=== PATIENT | female | born 1930 | race Caucasian/White ===

== ENCOUNTER 2017-02-03 11:12 | Inpatient (IN) | payer MEDICARE, OTHER ==
[2017-02-03 12:40] LABS: BASOPHILS 0.2 % (0.0-2.0); HEMATOCRIT 41.2 % (36.0-48.0); HEMOGLOBIN 14.1 g/dL (12.0-16.0); LYMPHOCYTES 10.4 % (20.0-40.0); LYMPHOCYTES# 1.2 X 10^3uL (0.8-3.8); MEAN CELL VOLUME 90.9 fL (80.0-100.0); MEAN CORPUS. HGB CONCENTRATION 34.3 g/dL (32.0-36.0); MEAN CORPUSCULAR HEMOGLOBIN 31.1 pg (29.0-35.0); MEAN PLATELET VOLUME 8.2 fL (7.4-10.4); MONOCYTES 6.2 % (2.0-10.0); MONOCYTES# 0.7 X 10^3uL (0.2-1.0); NEUTROPHILS 83.2 % (54.0-75.0); NEUTROPHILS# 9.6 X 10^3uL (2.6-6.7); PLATELET COUNT 253 X 10^3uL (130-440); RED BLOOD COUNT 4.53 X 10^6uL (4.20-6.10); RED CELL DISTRIBUTION WIDTH 13.3 % (11.5-14.5); WHITE BLOOD COUNT 11.5 X 10^3uL (3.9-10.7)
[2017-02-03 12:51] LABS: BLOOD UREA NITROGEN 33 mg/dL (7-17); CALCIUM 9.8 mg/dL (8.4-10.2); CHLORIDE 105 mmol/L (98-107); CREATININE 1.1 mg/dL (0.5-1.0); GLUCOSE 110 mg/dL (70-100); POTASSIUM 4.4 mmol/L (3.5-5.1); SODIUM 139 mmol/L (137-145)
[2017-02-03 12:54] LABS: INR 1.1
[2017-02-03] MEDS ORDERED: ACETAMINOPHEN 325 MG TABLET PO PRN ×2 (14:13→15:20)
[2017-02-03] MEDS ORDERED: ZOLPIDEM TARTRATE 5 MG TABLET PO PRN (14:13)
[2017-02-03] MEDS ORDERED: MAG-AL PLUS XS SUSP 30 ML UDC PO PRN (14:13)
[2017-02-03] MEDS ORDERED: POLYETHYLENE GLYCOL 3350 17 GM POWD.PACK PO PRN (14:13)
[2017-02-03] MEDS ORDERED: HOME MEDICATION LIST NEEDED 1 EA EACH MC ONE (14:13)
[2017-02-03 14:33] LABS: ALBUMIN 4.6 g/dL (3.5-5.0); ALKALINE PHOSPHATASE 116 U/L (38-126); ALT 25 U/L (9-52); AST 30 U/L (14-36); BILIRUBIN, DIRECT 0.4 mg/dL (0.0-0.4); BILIRUBIN, TOTAL 1.6 mg/dL (0.2-1.3); CREATINE KINASE 200 U/L (30-135); TOTAL PROTEIN 8.1 g/dL (6.3-8.2)
[2017-02-03] MEDS ORDERED: FENTANYL 100 MCG/2 ML VIAL ONE (15:19)
[2017-02-03] MEDS ORDERED: HYDROcodone/APAP 5/325 MG 1 TAB TABLET PO PRN (16:00)
--- NOTE | 2017-02-03 16:31 | HISTORY & PHYSICAL ---
PRIMARY CARE PHYSICIAN: Kaay Lopez MD CHIEF COMPLAINT: Fall. HISTORY OF PRESENT ILLNESS: This is an 87-year-old white female who slipped and fell approximately 1800 yesterday and fell with her outstretched hand backwards. She had immediate pain of her bilateral wrists. She was unable to get up. She had to crawl through the door and use the door to stand up. No head injury. She also landed on her low back but no low back pain. No preceding chest pain, lightheadedness, dizziness, shortness of breath or any signs or symptoms of a stroke. She soaked her arm in hot water with no relief of pain. She states her pain is so severe that she developed lightheadedness and dizziness but no syncope. She also had nausea but no vomiting. She states that her last meal was 1 p.m. yesterday. REVIEW OF SYSTEMS: She is currently not having any chest pain, no shortness of breath, no palpitations, no diaphoresis, no nausea or vomiting, no headache, neurologic changes, no dysphagia. No other recent falls. She often awakens with dizziness which she believes is related to her high blood pressure. She no longer checks her blood pressure and she has not taken her blood pressure medications for many years. No abdominal pain, no constipation, no diarrhea. No bloody stools. No dysuria. She does complain of frequent bilateral lower extremity cramping of her feet and legs when lying supine. PAST MEDICAL HISTORY 1. Hypertension. Of note, she has not been seen in the office for her hypertension since 2008 and has not had medications filled since that time. 2. History of migraine headaches. 3. History of urinary incontinence. MEDICATIONS: Baby aspirin daily. ALLERGIES: No known drug allergies. SOCIAL HISTORY: She is . with multiple medical problems. She has never been a smoker. No alcohol use. No children. She lives alone. 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 She is originally from [facility]. FAMILY HISTORY: Mom at the age of 87 of old age. She was healthy. Her dad in his 30s in [place]. Her grandmother had ischemic heart disease. PHYSICAL EXAMINATION VITAL SIGNS: Upon admission temperature 98.0, respiratory rate 18, pulse 88, blood pressure 135/104, 85% on room air. Her weight is 53.07 kg. She is 5 feet 1 inch. Repeat blood pressure was 209/88 and current blood pressure is 214 /88. GENERAL: This is a very pleasant, elderly female who is in no apparent distress. She only has pain with movement of her bilateral upper extremity. She is awake, alert, oriented times 3. HEENT: Her sclerae are clear. Her pupils are equal, round and reactive to light. Extraocular movements are intact. Her nares are clear. Her oropharynx is clear. NECK: Supple. Full range of motion. No carotid bruits, no lymphadenopathy. No jugular venous distention. LUNGS: Good aeration throughout and clear. HEART: Regular rate and rhythm without any murmurs, rubs or gallops. ABDOMEN: Soft, nontender, nondistended with good bowel sounds and no masses or hepatosplenomegaly. EXTREMITIES: Bilateral upper extremities reveal significant swelling of her hands and distal forearm. She has a 2 cm laceration of her right distal forearm. She has a skin tear of her left elbow. There is no active bleeding. The wounds are clean, dry and intact. She is able to move her fingers. She has good radial and brachial pulses. She is not able to extend or flex her wrist. She has full range of motion of her elbows and her shoulders. Bilateral lower extremities are warm. No cyanosis, clubbing or edema. Negative Homans. No palpable cords. SKIN: Cap refill is less than 3 seconds. NEUROLOGIC: Alert and oriented times 3. Good peripheral pulses. Her cranial nerves 2 through 12 are grossly intact without focal deficits. Her lower extremity motor sensation and DTRs are intact. Bilateral upper extremities: Her forearm strength is 5+. Unable to assess hand certified nursing assistant secondary to fractures and pain. Her upper extremity reflexes are 2+/4+. Bilateral lower extremities motor is 5+/5+. DTRs of lower extremities are 2+/4+. DTRs of lower extremities are 3+/4+. Upper extremity arm strength is 5+, forearms strength is 5+. Unable to assess the hand certified nursing assistant secondary to fractures. DATA: Basic meatbiolic panel bicarbonate is 21, BUN is 33, creatinine 1.1, glucose 110. CBC shows white count 11.5, hemoglobin 13.1, hematocrit 31.2. Platelets 253. PT 15.2, INR 1.1. Hepatic panel reveals alkaline phosphatase 125, otherwise normal. X-RAYS: Bilateral Colles fractures. EKG: Normal sinus rhythm with a rate of 75, axis normal, no QRS changes. She had a prior stress echocardiogram which was negative in 2010. ASSESSMENT: This is an 87-year-old female who presents with bilateral Colles fractures. PLAN 1. Fluids, electrolytes and nutrition. She states that she in general eats very little. Will begin some gentle IV fluids as she appears to be mildly dehydrated. Check creatinine kinase to ensure she does not have any rhabdomyolysis. 2. Orthopedics. Orthopedic surgeon Dr. Emmett Gruber has been notified. He will evaluate the patient tomorrow. For now we will most likely use volar splints as well as icing and pain medications as needed. Dr. Gruber has reviewed the films and does not believe that the patient will need operative reduction, internal fixation and that she can be managed conservatively with closed reduction of the fractures and casting. 3. Cardiovascular. The patient with longstanding history of hypertension with elevated blood pressures here. Will most likely begin DIVYA inhibitor and followup closely. 4. Disposition. Full hospital admission. She is a full core, full tube. She is unable to take care of herself at home. When she is more able to ambulate, we will ask physical therapy to evaluate. Social work and case management to evaluate for home safety after at least a 2-3 day hospital stay. CC: Dr. Emmett Gruber. ANGELA
[2017-02-03] MEDS ORDERED: ONDANSETRON HCL 4 MG/2 ML VIAL IV PRN (16:32)
[2017-02-03] MEDS: LISINOPRIL 10 MG TABLET PO SCH (16:34)
[2017-02-03] MEDS: NORMAL SALINE 1,000 ML IV SCH (16:35)
--- NOTE | 2017-02-03 16:38 | ER PHYSICIAN DOCUMENTATION ---
Physician Documentation [facility] Name:Esme Vogel Age:87 yrs Sex:Female :1930 Arrival Date:02/03/2017 Time:11:12 Bed6 Private MD:Kaya Lopez ED PhysicianRodolfokatyDuc Disposition: 02/04 11:41 Chart complete. tl1 Disposition: 02/03/17 16:37 Admit ordered for Kaya Lopez. Preliminary diagnosis is Colles Fracture. - Bed requested for Medical/Surgical. - Condition is Good. - Problem is new. - Symptoms have improved. 23 HR OBS No HPI: 02/03 11:26 This 87 yrs old Female presents to ER via Walk In with complaints of Fall tl1 Injury. 11:26 She fell yesterday; slipped on the ice , falling backwards, and injuring both wrists. tl1 She has little function with either. She denies any other injruy. No neck, back chest abdomen or any other pain. She lives alone.. Historical: - Allergies: No known drug Allergies; - Home Meds: 1. aspirin 81 mg oral tab - PMHx: Hypertension; - PSHx: None; - Tetanus: unknown. - Ebola Screening: : Patient negative for fever greater than or equal to 101.5 degrees Fahrenheit, and additional compatible Ebola Virus Disease symptoms. - Immunization history: Flu Vaccine None. - Social history: Smoking status: Patient states was never smoker of tobacco. ROS: 11:30 MS/extremity: Positive for decreased range of motion, deformity, ecchymosis, pain, tl1 swelling, tenderness, of the Both wrists. 11:30 All other systems are negative. Exam: 11:30 Constitutional: This is a well developed, well nourished patient who is awake, alert, tl1 and in no acute distress. Head/Face: Normocephalic, atraumatic. Neck: Trachea midline, no thyromegaly or masses palpated, and no cervical lymphadenopathy. Supple, full range of motion without nuchal rigidity, or vertebral point tenderness. No Meningismus. Chest/axilla: Normal chest wall appearance and motion. Nontender with no deformity. No lesions are appreciated. Cardiovascular: Regular rate and rhythm with a normal S1 and S2. No gallops, murmurs, or rubs. Normal PMI, no JVD. No pulse deficits. Respiratory: Lungs have equal breath sounds bilaterally, clear to auscultation and percussion. No rales, rhonchi or wheezes noted. No increased work of breathing, no retractions or nasal flaring. Abdomen/GI: Soft, non-tender, with normal bowel sounds. No distension or tympany. No guarding or rebound. No evidence of tenderness throughout. Back: No spinal tenderness. No costovertebral tenderness. Full range of motion. 11:30 Skin: Warm, dry with normal turgor. Normal color with no rashes, no lesions, and no tl1 evidence of cellulitis. 11:30 Musculoskeletal/extremity: Extremities: grossly normal except: Both wrists which are deformed, swollen, ecchymotic and tender with markedly decreased ROM. Distal neurovascular exam shows normal sensation to light touch and she can flex and extend all the fingers of each hand. Cap refill is normal bilaterally.. 11:30 Neuro: Orientation: is normal, appropriate for stated age, Mentation: is normal, Memory: is normal, Cranial nerves: grossly normal, Motor: moves all fours. Vital Signs: 11:30 BP 135 / 104 RA Sitting; Pulse 88; Resp 18; Temp 98.0(O); Pulse Ox 95% ; Weight 53.07 la kg (R); Height 5 ft. 1 in. (154.94 cm) (R); Pain 10/10; 12:23 BP 209 / 88; Pulse 77; Resp 18; Pulse Ox 93% on R/A; Pain 10/10; la 14:21 BP 211 / 82; Pulse 77; Resp 16; Pulse Ox 94% ; Pain 10/10; la 15:21 BP 161 / 77 RA Supine; Pulse 70; Resp 16 S; Pulse Ox 92% on R/A; Pain 2/10; la 11:30 Body Mass Index 22.11 (53.07 kg, 154.94 cm) la Trauma Score (Adult): 11:30 Eye Response: spontaneous(1); Verbal Response: oriented(1); Motor Response: obeys la commands(2); Systolic BP: > 89 mm Hg(4); Respiratory Rate: 10 to 29 per min(4); Merino Score: 15; Trauma Score: 12 12:23 Eye Response: spontaneous(1); Verbal Response: oriented(1); Motor Response: obeys la commands(2); Systolic BP: > 89 mm Hg(4); Respiratory Rate: 10 to 29 per min(4); Richard Score: 15; Trauma Score: 12 14:21 Eye Response: spontaneous(1); Verbal Response: oriented(1); Motor Response: obeys la commands(2); Systolic BP: > 89 mm Hg(4); Respiratory Rate: 10 to 29 per min(4); Merino Score: 15; Trauma Score: 12 15:21 Eye Response: spontaneous(1); Verbal Response: oriented(1); Motor Response: obeys la commands(2); Systolic BP: > 89 mm Hg(4); Respiratory Rate: 10 to 29 per min(4); Merino Score: 15; Trauma Score: 12 Procedures: 11:30 Splinting: Splint applied to right wrist and left wrist using Orthoglass splint, tl1 applied by myself. Examined by me, post splint application: neurovascular intact, brisk capillary refill noted, Patient tolerated well. Laceration: 11:30 Wound Repair of 1.5cm ( 0.6in ) subcutaneous laceration to right wrist. Linear shaped.. tl1 Irregularly shaped.. Minimal bleeding noted.. Distal neuro/vascular/tendon intact. Anesthesia: Wound infiltrated with 2.5 mls of 2% lidocaine. Wound prep: Simple cleansing with hibiclenz, Wound explored extensively, Copious irrigation. Skin closed with 1-0 Ethilon using Simple sutures. Dressed with Bacitracin, 4x4's. Patient tolerated well. MDM: 11:25 Patient medically screened. tl1 11:30 Differential diagnosis: contusion, fracture, laceration. Data reviewed: vital signs, tl1 lab test result(s), EKG, radiologic studies, plain films, and as a result, I will admit patient. Test interpretation: by ED physician or midlevel provider: plain radiologic studies. Counseling: I had a detailed discussion with the patient and/or guardian regarding: the historical points, exam findings, and any diagnostic results supporting the discharge/admit diagnosis, radiology results, the need for further work-up and treatment in the hospital. Medication response: The patient's symptoms have improved. Response to treatment: the patient's symptoms have markedly improved after treatment, and as a result, I will admit patient. Physician consultation: Emmett Gruber MD was called at 16:20, was contacted at 16:20, regarding patient's condition, and will see patient in inpatient room, tomorrow. Other consultation: Dr Kaya Lopez, at about 1620. She will admit patient for pre-op evaluation. 02/03 12:52 Order name: BASIC METABOLIC PANEL; Complete Time: 11:44 EDMS 02/04 11:41 Interpretation: SODIUM 139; POTASSIUM 4.4; CHLORIDE 105; CARBON DIOXIDE 21; GLUCOSE tl1 110; BLOOD UREA NITROGEN 33; CREATININE 1.1. 02/03 12:53 Order name: CBC AUTO DIF, MDIF/RMOR IF IND; Complete Time: 11:44 EDMS 02/04 11:42 Interpretation: WHITE BLOOD COUNT 11.5; HEMOGLOBIN 14.1; HEMATOCRIT 41.2; PLATELET tl1 COUNT 253. 02/03 12:57 Order name: PROTIME/INR; Complete Time: 11:44 EDMS 02/04 11:42 Interpretation: Normal: PROTIME 15.2. [facility] 02/03 14:36 Order name: HEPATIC PANEL; Complete Time: 11:44 EDMS 02/04 11:42 Interpretation: Normal Except: BILIRUBIN, TOTAL 1.6. [facility] 02/03 14:36 Order name: CREATINE KINASE; Complete Time: 11:44 EDMS 02/04 11:43 Interpretation: Abnormal: CREATINE KINASE 200. [facility] 02/03 15:18 Order name: MAGNESIUM; Complete Time: 11:44 EDMS 02/04 11:43 Interpretation: Normal: MAGNESIUM 2.3. [facility] 02/03 12:24 Order name: EKG - 12 Lead; Complete Time: 12:39 st 02/04 11:43 Interpretation: SEE NOTE. NAD. tl1 Dispensed Medications: 15:10 Drug: fentaNYL (PF) 50 mcg; Route: IVP; Site: right antecubital; la 15:33 Follow up: Response: No adverse reaction; Pain is decreased la Signatures: Sangita Contreras, NADIRA Bateman, Duc Stahl MD MD tl1
--- NOTE | 2017-02-03 16:38 | ER NURSING DOCUMENTATION ---
Nurse's Notes [facility] Name:Esme Vogel Age:87 yrs Sex:Female :1930 Arrival Date:02/03/2017 Time:11:12 Bed6 Private MD:Kaya Lopez Diagnosis:Colles Fracture Presentation: 02/03 11:19 Presenting complaint: Patient states: slipped on the ice yesterday around 1800 and fell la onto back with both arms behind her, c/o pain to both wrists. Abrasion to anterior right wrist, bruising from both wrists to mid forearms, denies hitting her head, denies back pain. strong bilat radial pulses, able to wiggle fingers, but painful. Transition of care: Home. 11:19 Acuity: HUGH 3 la 11:19 Method Of Arrival: Walk In la Triage Assessment: 11:26 General: Appears comfortable, Behavior is appropriate for age, cooperative, pleasant. la Pain: Complains of pain in both wrists Pain began yesterday at 1800 Alleviated by nothing. Aggravated by moving them. EENT: No deficits noted. Neuro: Level of Consciousness is awake, alert, obeys commands, Oriented to person, place, time, event. Cardiovascular: No deficits noted. Respiratory: No deficits noted. GI: No deficits noted. : No deficits noted. Derm: Skin is fragile, is thin, with poor turgor Bruising that is both wrists to mid foreams. Musculoskeletal: Circulation, motion, and sensation intact Capillary refill < 3 seconds Range of motion limited in left wrist and right wrist Swelling present in both wrists and forearms. Injury Description: Abrasion sustained to right anterior wrist, left middle finger, right thumb, right elbow. Historical: - Allergies: No known drug Allergies; - Home Meds: 1. aspirin 81 mg oral tab - PMHx: Hypertension; - PSHx: None; - Tetanus: unknown. - Ebola Screening: : Patient negative for fever greater than or equal to 101.5 degrees Fahrenheit, and additional compatible Ebola Virus Disease symptoms. - Immunization history: Flu Vaccine None. - Social history: Smoking status: Patient states was never smoker of tobacco. Screenin:32 Infectious Disease Risk None. Abuse screen: Denies threats or abuse. Nutritional la screening: No deficits noted. Assessment: 11:31 See Triage Assessment done by same RN. la 11:35 Reassessment: refusing pain medications, states she is okay if she does not move her la wrists, states she does not like to take medication. 11:35 Reassessment: continues to refuse pain medications. Dr Lopez here to see pt. la 12:30 Reassessment: No changes from previously documented assessment. Patient appears in no la apparent distress at this time. 13:35 Reassessment: No changes from previously documented assessment. Patient appears in no la apparent distress at this time. 14:40 Reassessment: No changes from previously documented assessment. Patient appears in no la apparent distress at this time. 14:58 Reassessment: pt sleeping, awakens to verbal, refusing pain medication. la Vital Signs: 11:30 BP 135 / 104 RA Sitting; Pulse 88; Resp 18; Temp 98.0(O); Pulse Ox 95% ; Weight 53.07 la kg (R); Height 5 ft. 1 in. (154.94 cm) (R); Pain 10/10; 12:23 BP 209 / 88; Pulse 77; Resp 18; Pulse Ox 93% on R/A; Pain 10/10; la 14:21 BP 211 / 82; Pulse 77; Resp 16; Pulse Ox 94% ; Pain 10/10; la 15:21 BP 161 / 77 RA Supine; Pulse 70; Resp 16 S; Pulse Ox 92% on R/A; Pain 2/10; la 11:30 Body Mass Index 22.11 (53.07 kg, 154.94 cm) la Trauma Score (Adult): 11:30 Eye Response: spontaneous(1); Verbal Response: oriented(1); Motor Response: obeys la commands(2); Systolic BP: > 89 mm Hg(4); Respiratory Rate: 10 to 29 per min(4); Richard Score: 15; Trauma Score: 12 12:23 Eye Response: spontaneous(1); Verbal Response: oriented(1); Motor Response: obeys la commands(2); Systolic BP: > 89 mm Hg(4); Respiratory Rate: 10 to 29 per min(4); Richard Score: 15; Trauma Score: 12 14:21 Eye Response: spontaneous(1); Verbal Response: oriented(1); Motor Response: obeys la commands(2); Systolic BP: > 89 mm Hg(4); Respiratory Rate: 10 to 29 per min(4); Richard Score: 15; Trauma Score: 12 15:21 Eye Response: spontaneous(1); Verbal Response: oriented(1); Motor Response: obeys la commands(2); Systolic BP: > 89 mm Hg(4); Respiratory Rate: 10 to 29 per min(4); Richard Score: 15; Trauma Score: 12 ED Course: 11:14 Patient arrived in ED. ama 11:14 Kaya Lopez MD is Private Physician. ama 11:18 Hetal Hopper is Primary Nurse. la 11:24 Triage completed. la 11:26 Duc Salazar MD is Attending Physician. tl1 11:32 Valuables Remains with patient Patient has correct armband on for positive la identification. Bed in low position. Call light in reach. Side rails up X2. Door closed. Ice pack to injury. Pillow given. 12:03 Port Xray Completed. pm1 12:15 Inserted saline lock: 20 gauge in right antecubital area and blood collected. la 12:16 Diet: Patient given water. st 12:35 Port Xray Completed. pm1 12:36 EKG done. (by ED staff). Reviewed by Duc Salazar MD. la 12:50 Wound care to abrasion, located on right anterior wrist, left elbow was cleaned with la dressed with Patient tolerated well. 15:07 Assist Provider Assist provider with laceration repair on right wrist using sutures. la Set up tray. Performed by Duc Salazar MD Dressed with Patient tolerated. 15:31 Volar splint applied on right arm. la 15:31 Volar splint applied on left arm. la 15:31 Assist Provider Assist provider with fracture care of right wrist and left wrist la Fracture is closed. Circulation, motor and sensation is intact. Set up for procedure. Performed by Duc Salazar MD Immobilized with preformed splint, Post immobilization, circulation, motor and sensation remain intact. Patient tolerated well. 16:36 Kaya Lopez MD is Admitting Physician. tl1 Administered Medications: 15:10 Drug: fentaNYL (PF) 50 mcg; Route: IVP; Site: right antecubital; la 15:33 Follow up: Response: No adverse reaction; Pain is decreased la Outcome: 14:22 Admitted to Med/surg accompanied by nurse. la 15:42 Condition: stable la 15:42 Report given to Roxana WADDELL la 16:37 Decision to Admit by Provider. tl1 16:37 Patient left the ED. la Signatures: Sangita Contreras RN RN st McBride, Philisha pm1 Claude Nicole, Reg Reg Hetal Tineo Tom, MD MD tl1
[2017-02-03] MEDS ORDERED: TETANUS/DIPTHERIA 0.5 ML DISP.SYRIN IM ONE ×2 (17:00→18:11)
[2017-02-03] MEDS ORDERED: [UNRECOGNIZED DRUG - OTHER] IM ONE (17:00)
[2017-02-03 18:52] LABS: URINE MUCUS NONE SEEN (Up to 25%); URINE RBC NONE SEEN (0-5/hpf)
[2017-02-03 18:53] LABS: URINE APPEARANCE CLEAR; URINE BILIRUBIN NEGATIVE (NEGATIVE); URINE BLOOD NEGATIVE (NEGATIVE); URINE COLOR YELLOW; URINE GLUCOSE NORMAL (NEGATIVE); URINE KETONE 5mg/dL (NEGATIVE); URINE LEUKOCYTE ESTERASE NEGATIVE (NEGATIVE); URINE NITRITE NEGATIVE (NEGATIVE); URINE PH 5.5 (5-7); URINE PROTEIN 30mg/dL (1+) (NEG - TRACE); URINE UROBILINOGEN 0.2mg/dL (Normal) (NEG-1mg/dL)
[2017-02-03 18:54] LABS: URINE SQUAMOUS EPITHELIAL CELL 0-5/hpf (<= 15/hpf); URINE WBC 0-4/hpf (0-4/hpf)
[2017-02-03 18:55] LABS: URINE BACTERIA <10 ORGANISMS/hpf (<10/hpf)
[2017-02-04] MEDS: NORMAL SALINE 1,000 ML IV SCH (05:43)
[2017-02-04 06:35] LABS: BASOPHIL# 0.1 X 10^3uL (0.0-0.1); BASOPHILS 0.9 % (0.0-2.0); EOSINOPHILS 1.5 % (0.0-6.0); EOSINOPHILS# 0.1 X 10^3uL (0.0-0.4); HEMATOCRIT 39.5 % (36.0-48.0); HEMOGLOBIN 13.2 g/dL (12.0-16.0); LYMPHOCYTES 21.4 % (20.0-40.0); LYMPHOCYTES# 1.9 X 10^3uL (0.8-3.8); MEAN CELL VOLUME 90.3 fL (80.0-100.0); MEAN CORPUS. HGB CONCENTRATION 33.4 g/dL (32.0-36.0); MEAN CORPUSCULAR HEMOGLOBIN 30.2 pg (29.0-35.0); MEAN PLATELET VOLUME 8.4 fL (7.4-10.4); MONOCYTES 8.1 % (2.0-10.0); MONOCYTES# 0.7 X 10^3uL (0.2-1.0); NEUTROPHILS 68.1 % (54.0-75.0); NEUTROPHILS# 6.2 X 10^3uL (2.6-6.7); PLATELET COUNT 232 X 10^3uL (130-440); RED BLOOD COUNT 4.37 X 10^6uL (4.20-6.10); RED CELL DISTRIBUTION WIDTH 13.5 % (11.5-14.5); WHITE BLOOD COUNT 8.9 X 10^3uL (3.9-10.7)
[2017-02-04 06:48] LABS: BLOOD UREA NITROGEN 24 mg/dL (7-17); CALCIUM 8.7 mg/dL (8.4-10.2); CHLORIDE 108 mmol/L (98-107); CREATINE KINASE 184 U/L (30-135); CREATININE 0.8 mg/dL (0.5-1.0); GLUCOSE 97 mg/dL (70-100); POTASSIUM 3.8 mmol/L (3.5-5.1); SODIUM 137 mmol/L (137-145)
[2017-02-04 09:48] LABS: ALBUMIN 3.7 g/dL (3.5-5.0); BILIRUBIN, DIRECT 0.4 mg/dL (0.0-0.4); BILIRUBIN, TOTAL 1.6 mg/dL (0.2-1.3); TOTAL PROTEIN 6.6 g/dL (6.3-8.2)
[2017-02-04] MEDS ORDERED: LIDOCAINE HCL 1% 20 ML VIAL SUBCUT ONE (10:35)
[2017-02-04] MEDS ORDERED: FAMOTIDINE IN SALINE, ISO-OSM 20 MG/50 ML PIGGYBACK IV SCH (10:45)
[2017-02-04] MEDS ORDERED: FENTANYL 100 MCG/2 ML VIAL ONE (10:50)
[2017-02-04] MEDS ORDERED: LACTATED RINGERS 1,000 ML IV SCH ×2 (11:00→12:01)
--- NOTE | 2017-02-04 11:20 | PROGRESS NOTE: IM SOAP ---
IM: PN Subjective General: no good appetite (However, this is her baseline. ) Cardiovascular: no chest pain, no dizziness Respiratory: no SOB Gastrointestinal: no abdominal pain, no nausea, no vomiting Genitourinary: no flank pain Musculoskeletal: pain (BUE), swelling (BUE), other ( She states that she is not having any BLE leg cramping which was so bothersome yesterday. ) Integumentary: wound (RUE laceration has been sutured. Not visualized as covered with splint. ), other IM: PN Objective Exam - I&O/Vital Signs I&O: Intake & Output 02/03/17 02/04/17 02/04/17 21:59 05:59 13:59 Intake Total 500 1063 Output Total 300 550 Balance 200 513 Weight 53.07 kg 48.5 kg Intake: IV 150 963 Right Antecubital 150 963 Oral 350 100 Output: Urine 300 550 Other: Urine Appearance Clear Clear Clear Urine Color Yellow Yellow Yellow Stool Size Large Large Stool Characteristics Soft Soft Formed Formed Brown Brown Voiding Method Toilet Toilet # Voids 4 # Bowel Movements 1 Vital Signs: Last Vital Signs Temp 36.7 C 02/04/17 06:51 Pulse 66 02/04/17 06:51 Resp 16 02/04/17 09:00 BP 170/63 02/04/17 06:51 Pulse Ox 98 02/04/17 09:00 Oxygen Delivery Method Room Air - Constitutional General appearance: Present: cooperative, thin (Cachectic. ). Absent: acute distress - Head Head exam: Present: atraumatic, normal inspection, normocephalic - Eye Eye exam: Present: EOMI, PERRL - ENT ENT exam: Present: mucous membranes moist - Neck Neck exam: Present: full ROM - Respiratory Respiratory exam: Present: clear. Absent: accessory muscle use, rales, wheezes - Cardiovascular Cardiovascular exam: Present: RRR. Absent: clicks, gallop, systolic murmur - GI/Abdominal GI/Abdominal exam: Present: normal bowel sounds, soft. Absent: mass, organomegaly, rebound, tenderness - Extremities Exam Extremities exam: Present: normal capillary refill, edema (BUE: forearms 2' fractures. ), tenderness (BUE), other (AMOR hose in place. ). Absent: calf tenderness - Back Exam Back exam: Absent: CVA tenderness (L), CVA tenderness (R) - Neurological Exam Neurological exam: Present: alert, oriented X3 - Psychiatric Psychiatric exam: Present: normal affect, normal mood - Skin Skin exam: Present: other (Bruising BUE. ) - Allied Health Notes Allied health notes reviewed: nursing - Lab Labs: Laboratory Last Values WBC 8.9 X 10^3uL (3.9-10.7) 02/04/17 06:03 RBC 4.37 X 10^6uL (4.20-6.10) 02/04/17 06:03 Hgb 13.2 g/dL (12.0-16.0) 02/04/17 06:03 Hct 39.5 % (36.0-48.0) 02/04/17 06:03 MCV 90.3 fL (80.0-100.0) 02/04/17 06:03 MCH 30.2 pg (29.0-35.0) 02/04/17 06:03 MCHC 33.4 g/dL (32.0-36.0) 02/04/17 06:03 RDW 13.5 % (11.5-14.5) 02/04/17 06:03 Plt Count 232 X 10^3uL (130-440) 02/04/17 06:03 MPV 8.4 fL (7.4-10.4) 02/04/17 06:03 Neutrophils % 68.1 % (54.0-75.0) 02/04/17 06:03 Lymphocytes % 21.4 % (20.0-40.0) 02/04/17 06:03 Eosinophils % 1.5 % (0.0-6.0) 02/04/17 06:03 Basophils % 0.9 % (0.0-2.0) 02/04/17 06:03 Neutrophils # 6.2 X 10^3uL (2.6-6.7) 02/04/17 06:03 Lymphocytes # 1.9 X 10^3uL (0.8-3.8) 02/04/17 06:03 Monocytes 8.1 % (2.0-10.0) 02/04/17 06:03 Monocytes # 0.7 X 10^3uL (0.2-1.0) 02/04/17 06:03 Eosinophils # 0.1 X 10^3uL (0.0-0.4) 02/04/17 06:03 Basophils # 0.1 X 10^3uL (0.0-0.1) 02/04/17 06:03 PT 15.2 sec (13.0-16.6) 02/03/17 12:15 INR 1.1 02/03/17 12:15 Sodium 137 mmol/L (137-145) 02/04/17 06:03 Potassium 3.8 mmol/L (3.5-5.1) 02/04/17 06:03 Chloride 108 mmol/L (98-107) H 02/04/17 06:03 Carbon Dioxide 21 mmol/L (22-30) L 02/04/17 06:03 BUN 24 mg/dL (7-17) H 02/04/17 06:03 Creatinine 0.8 mg/dL (0.5-1.0) 02/04/17 06:03 GFR Calculation Not Reportable 02/04/17 06:03 Glucose 97 mg/dL (70-100) 02/04/17 06:03 Calcium 8.7 mg/dL (8.4-10.2) 02/04/17 06:03 Magnesium 2.3 mg/dL (1.6-2.3) 02/03/17 15:08 Total Bilirubin 1.6 mg/dL (0.2-1.3) H 02/04/17 06:10 Direct Bilirubin 0.4 mg/dL (0.0-0.4) 02/04/17 06:10 AST 25 U/L (14-36) 02/04/17 06:10 ALT 33 U/L (9-52) 02/04/17 06:10 Alkaline Phosphatase 101 U/L (38-126) 02/04/17 06:10 Creatine Kinase 184 U/L (30-135) H 02/04/17 06:03 Total Protein 6.6 g/dL (6.3-8.2) 02/04/17 06:10 Albumin 3.7 g/dL (3.5-5.0) 02/04/17 06:10 Urine Color Yellow 02/03/17 16:30 Urine Appearance Clear 02/03/17 16:30 Urine pH 5.5 (5-7) 02/03/17 16:30 Ur Specific [place] 1.020 (0.001-1.035) 02/03/17 16:30 Urine Protein 30mg/dl (1+) (NEG - TRACE) A 02/03/17 16:30 Urine Ketones 5mg/dl (NEGATIVE) A 02/03/17 16:30 Urine Blood Negative (NEGATIVE) 02/03/17 16:30 Urine Nitrate Negative (NEGATIVE) 02/03/17 16:30 Urine Bilirubin Negative (NEGATIVE) 02/03/17 16:30 Urine Urobilinogen 0.2mg/dl (normal) (NEG-1mg/dL) 02/03/17 16:30 Ur Leukocyte Esterase Negative (NEGATIVE) 02/03/17 16:30 Urine RBC None seen (0-5/hpf) 02/03/17 16:30 Urine WBC 0-4/hpf (0-4/hpf) 02/03/17 16:30 Ur Squamous Epith Cells 0-5/hpf (<= 15/hpf) 02/03/17 16:30 Urine Bacteria <10 organisms/hpf (<10/hpf) 02/03/17 16:30 Urine Mucus None seen (Up to 25%) 02/03/17 16:30 Urine Glucose Normal (NEGATIVE) 02/03/17 16:30 Assessment and Plan - Date of Encounter Date of Encounter: 02/04/17 (1) Colles' fracture of left radius, initial encounter for closed fracture Status: Acute Assessment and plan: Orthopedic surgeon, Dr. Emmett Gruber to perform closed reduction of bilateral Colles' fractures under local sedation today. He pain is remarkably well- controlled with Tylenol and placement of splints alone. She has declined the use of [place]. She received one dosage of Fentanyl in the ED. She is and lives alone. She has not family in town and no other resources. She is currently unable to feed, dress, bathe, or take care of herself without the use of her two opposing thumbs. We will see how she does after placement of her casts and then determine her discharge plan. I have asked case management, physical therapy, and occupational therapy to see her in consultation tomorrow. Current Visit: Yes (2) Colles' fracture of right radius, initial encounter for closed fracture Status: Acute Current Visit: Yes (3) Hypertension Status: Chronic Assessment and plan: Long-standing HTN. Has not been seen or been on medications since 2008. BPs 200s upon admission to ED and more stable today 170-180s after lisinopril 10mg started yesterday. We will not be overly aggressive with BP management as she has been very hypertensive for many years. Dropping her BP too low could potentially precipitate a stroke. Labs remarkably stable. Current Visit: Yes (4) Elevated CK Status: Acute Assessment and plan: Mildly elevated CK 200 and decreased today 184 after gentle IVF overnight. She probably has some mild rhabdomyolysis from her bilateral Colles' fractures. She states that she was only unable to not get up from the floor for a few minutes after her fall. Add Troponin and CPK-MB to blood from ED. EKG negative. Will discontinue IVF this afternoon after closed reduction and placement of casts. Current Visit: Yes (5) Total bilirubin, elevated Status: Acute Assessment and plan: Probably related to dehydration. Recheck Tbili today. Dbili normal. Current Visit: Yes (6) Leukocytosis Status: Acute Assessment and plan: Elevated WBC on admission which is resolved today. This was most likely related to her fall and the stress of her fractures. Current Visit: Yes - Time Spent With Patient Total time spent with greater than 50% in coordination of care (as documented) at patient's floor/unit and/or counseling patient: 25 - 35 minutes Quality Questions - VTE Prophylaxis Assessment VTE Present on Admission?: No Patient at risk for venous thromboembolism?: Yes VTE Risk Level: High Risk VTE Medical Contraindication: N/A- VTE prophylaxsis ord (1) Colles' fracture of left radius, initial encounter for closed fracture Qualifiers: Encounter type: initial encounter Qualified Code(s): S52.532A - Colles' fracture of left radius, initial encounter for closed fracture (2) Colles' fracture of right radius, initial encounter for closed fracture Qualifiers: Encounter type: initial encounter Qualified Code(s): S52.531A - Colles' fracture of right radius, initial encounter for closed fracture (3) Hypertension Qualifiers: Hypertension type: essential hypertension Qualified Code(s): I10 - Essential (primary) hypertension (6) Leukocytosis Qualifiers: Leukocytosis type: other Qualified Code(s): D72.828 - Other elevated white blood cell count
[2017-02-04] MEDS ORDERED: FENTANYL 100 MCG/2 ML VIAL IV PRN (11:58)
[2017-02-04] MEDS ORDERED: ZOLPIDEM TARTRATE 5 MG TABLET PO PRN (12:01)
[2017-02-04] MEDS ORDERED: MAG-AL PLUS XS SUSP 30 ML UDC PO PRN (12:01)
[2017-02-04] MEDS ORDERED: HYDROcodone/APAP 5/325 MG 1 TAB TABLET PO PRN (12:01)
[2017-02-04] MEDS ORDERED: ONDANSETRON HCL 4 MG/2 ML VIAL IV PRN (12:01)
[2017-02-04] MEDS ORDERED: ACETAMINOPHEN 325 MG TABLET PO PRN (12:01)
[2017-02-04] MEDS ORDERED: NORMAL SALINE 1,000 ML IV SCH (12:01)
[2017-02-04] MEDS ORDERED: POLYETHYLENE GLYCOL 3350 17 GM POWD.PACK PO PRN (12:01)
[2017-02-04] MEDS: HYDROmorphone HCL 1 MG/ML SYR IV PRN ×2 (12:10→12:25)
[2017-02-04 12:35] LABS: CKMB 4.45 ng/mL (0.00-2.37)
[2017-02-04 12:36] LABS: TROPONIN I < 0.012 ng/mL (0.00-0.034)
--- NOTE | 2017-02-04 12:37 | PROCEDURE NOTE: Orthopedics ---
Orthopedic Procedure note - Brief Operative Note Date of procedure: 02/04/17 Pre-Op Diagnosis: BILATERAL DISTAL RADIUS FRACTURES Post-op diagnosis: same Procedure: Closed reduction and casting, bilat Anesthesia Type: General Physician: MARIA M LORENZ Estimated Blood Loss: 0 Specimen/Pathology: none sent Sponge/instrument count: correct X-ray/Fluoroscopy: Yes Condition: stable Disposition: PACU
[2017-02-04] MEDS: hydrALAZINE HCL 20 MG/ML VIAL IV PRN ×2 (13:00→13:10)
[2017-02-04] MEDS ORDERED: hydrALAZINE HCL 20 MG/ML VIAL ONE (13:06)
[2017-02-04] MEDS: LISINOPRIL 10 MG TABLET PO SCH (13:55)
--- NOTE | 2017-02-04 14:35 | CONSULTATION ---
DATE OF CONSULTATION: 02/04/17 REFERRING PHYSICIAN: Dr. Lopez. CHIEF COMPLAINT: Bilateral broken wrists. Dear Dr. Lopez, Thanks you for asking me to evaluate this patient. As you know she is an 87- year-old female who fell while at home, falling over backwards and landing on both of her outstretched hands. She had immediate pain but did not seek treatment right away. She was seen in the emergency department the following day and then was noted to have fractures of both of her distal radii. Due to the fact that she lives alone and had bilateral upper extremities injuries, she was admitted for management of her injuries. PAST MEDICAL HISTORY: Otherwise remarkable for 1. Hypertension. 2. Migraine headaches. 3. Urinary incontinence. MEDICATIONS: None on a regular basis except for daily baby aspirin. ALLERGIES: No known drug allergies. FAMILY HISTORY: Noncontributory. SOCIAL HISTORY: The patient is a who lives alone. She is a nonsmoker. REVIEW OF SYSTEMS: Review of systems is negative for syncopal or near syncopal episode related to her fall. She has not had any chest pain or shortness of breath, and the review of systems is otherwise noncontributory. PHYSICAL EXAMINATION GENERAL: A very pleasant elderly female in no apparent distress, alert and oriented times 3. UPPER EXTREMITIES: Physical examination of her upper extremities reveals that she is in bilateral volar splints. She has mild swelling in her digits but moves them well. Her sensation is intact throughout to light touch and she has brisk capillary refill distally. X-RAYS: Plain radiographs of the wrist reveal that on the left side she has a fracture of the metaphysis of the distal radius which is extra-articular. There is minimal if any displacement of the volar cortex, and about 20 degrees of apex volar angulation. Also she does have some dorsal comminution but this appears to involve less than 50% of the thickness of the bone. On the right side she has again a metaphyseal distal radius fracture, with about 10% dorsal displacement of the distal fragment and again about 15-20 degrees of apex volar angulation. ASSESSMENT: Bilateral distal radius fracture as noted above. PLAN: We discussed the treatment options with the patient, and I believe that both fractures are amenable to closed reduction and closed treatment. Due to the fact that she has bilateral injuries, she will be taken to the operating room where she will undergo closed reduction and casting under conscious sedation. We will then monitor her, as we are planning on placing her in a cast due to the fact she has bilateral injuries. Should we need to we will univalve the casts postoperatively. Thanks you again for asking me to evaluate this patient. ANGELA
--- NOTE | 2017-02-04 15:01 | OPERATIVE REPORT ---
DATE OF SURGERY: 02/04/17 SURGEON: Emmett Gruber MD PREOPERATIVE DIAGNOSIS: Bilateral distal radius fractures. POSTOPERATIVE DIAGNOSIS: Bilateral distal radius fractures. PROCEDURE PERFORMED: Bilateral closed reduction and casting under C-arm fluoroscopy. INDICATIONS FOR PROCEDURE: The patient is an 87-year-old female who fell while at home, sustaining angulated fractures of both her distal radii. Due to the fact that she did angulation she was taken to the operating room for closed reduction of both sites under general anesthesia. DESCRIPTION OF PROCEDURE: After informed consent was obtained, the patient was taken to the operating room where she was placed in the supine position under general anesthesia. After adequate anesthesia was achieved, the right upper extremity was suspended using a finger with 12 pounds of counter traction applied to the upper arm. A gentle closed reduction maneuver was performed, and C-arm fluoroscopy was used to verify proper alignment of the fracture which at that time was near anatomic. A well padded short arm cast was then applied with a 3 point mold. Once that was completed, we moved to the other side and performed a closed reduction on the left side in the exact same fashion. Once again we were able to attain a near anatomic alignment. Also once again a well padded short arm fiberglass cast was applied with a 3 point mold. The patient tolerated the procedure well and was taken to the recovery room in stable condition. ESTIMATED BLOOD LOSS: 0. MTDD
[2017-02-04] MEDS ORDERED: NORMAL SALINE FLUSH 200 ML ONE (17:25)
--- NOTE | 2017-02-05 08:50 | PROGRESS NOTE: IM SOAP ---
IM: PN Subjective General: good appetite (She has been eating well. ), no fatigue, no pain Cardiovascular: no chest pain, no dizziness Respiratory: no cough, no SOB Gastrointestinal: no abdominal pain, no nausea, no vomiting, no constipation Musculoskeletal: swelling (BUE), other (Recurrent BLE cramping.), no pain (She states that she does not have any pain of her BUE.) Integumentary: wound (RUE laceration has been sutured. Not visualized as covered with cast. ), other IM: PN Objective Exam - I&O/Vital Signs I&O: Intake & Output 02/04/17 02/05/17 02/05/17 21:59 05:59 13:59 Intake Total 200 100 Output Total 1000 400 Balance -800 -300 Weight 48.5 kg Intake: Oral 200 100 Output: Urine 1000 400 Other: Urine Appearance Clear Clear Urine Color Yellow Yellow Voiding Method Toilet # Voids 2 Vital Signs: Last Vital Signs Temp 36.9 C 02/05/17 06:41 Pulse 71 02/05/17 06:41 Resp 16 02/05/17 06:41 BP 134/48 02/05/17 06:41 Pulse Ox 91 02/05/17 06:41 Oxygen Flow Rate 1 Oxygen Delivery Method Room Air - Constitutional General appearance: Present: cooperative, thin (Cachectic. ). Absent: acute distress - Head Head exam: Present: atraumatic, normal inspection, normocephalic - Eye Eye exam: Present: EOMI, PERRL - ENT ENT exam: Present: mucous membranes moist - Neck Neck exam: Present: full ROM - Respiratory Respiratory exam: Present: clear. Absent: accessory muscle use, rales, wheezes - Cardiovascular Cardiovascular exam: Present: RRR. Absent: clicks, gallop, systolic murmur - GI/Abdominal GI/Abdominal exam: Present: normal bowel sounds, soft. Absent: mass, organomegaly, rebound, tenderness - Extremities Exam Extremities exam: Present: normal capillary refill, edema (BUE: forearms 2' fractures. ), other (AMOR hose in place. Good DP/PT pulses.). Absent: calf tenderness, tenderness - Back Exam Back exam: Absent: CVA tenderness (L), CVA tenderness (R) - Neurological Exam Neurological exam: Present: alert, oriented X3 - Psychiatric Psychiatric exam: Present: normal affect, normal mood - Skin Skin exam: Present: other (Bruising BUE. ) - Allied Health Notes Allied health notes reviewed: nursing, OT, PT, social work - Lab Labs: Laboratory Last Values WBC 8.9 X 10^3uL (3.9-10.7) 02/04/17 06:03 RBC 4.37 X 10^6uL (4.20-6.10) 02/04/17 06:03 Hgb 13.2 g/dL (12.0-16.0) 02/04/17 06:03 Hct 39.5 % (36.0-48.0) 02/04/17 06:03 MCV 90.3 fL (80.0-100.0) 02/04/17 06:03 MCH 30.2 pg (29.0-35.0) 02/04/17 06:03 MCHC 33.4 g/dL (32.0-36.0) 02/04/17 06:03 RDW 13.5 % (11.5-14.5) 02/04/17 06:03 Plt Count 232 X 10^3uL (130-440) 02/04/17 06:03 MPV 8.4 fL (7.4-10.4) 02/04/17 06:03 Neutrophils % 68.1 % (54.0-75.0) 02/04/17 06:03 Lymphocytes % 21.4 % (20.0-40.0) 02/04/17 06:03 Eosinophils % 1.5 % (0.0-6.0) 02/04/17 06:03 Basophils % 0.9 % (0.0-2.0) 02/04/17 06:03 Neutrophils # 6.2 X 10^3uL (2.6-6.7) 02/04/17 06:03 Lymphocytes # 1.9 X 10^3uL (0.8-3.8) 02/04/17 06:03 Monocytes 8.1 % (2.0-10.0) 02/04/17 06:03 Monocytes # 0.7 X 10^3uL (0.2-1.0) 02/04/17 06:03 Eosinophils # 0.1 X 10^3uL (0.0-0.4) 02/04/17 06:03 Basophils # 0.1 X 10^3uL (0.0-0.1) 02/04/17 06:03 PT 15.2 sec (13.0-16.6) 02/03/17 12:15 INR 1.1 02/03/17 12:15 Sodium 137 mmol/L (137-145) 02/04/17 06:03 Potassium 3.8 mmol/L (3.5-5.1) 02/04/17 06:03 Chloride 108 mmol/L (98-107) H 02/04/17 06:03 Carbon Dioxide 21 mmol/L (22-30) L 02/04/17 06:03 BUN 24 mg/dL (7-17) H 02/04/17 06:03 Creatinine 0.8 mg/dL (0.5-1.0) 02/04/17 06:03 GFR Calculation Not Reportable 02/04/17 06:03 Glucose 97 mg/dL (70-100) 02/04/17 06:03 Calcium 8.7 mg/dL (8.4-10.2) 02/04/17 06:03 Magnesium 2.3 mg/dL (1.6-2.3) 02/03/17 15:08 Total Bilirubin 1.6 mg/dL (0.2-1.3) H 02/04/17 06:10 Direct Bilirubin 0.4 mg/dL (0.0-0.4) 02/04/17 06:10 AST 25 U/L (14-36) 02/04/17 06:10 ALT 33 U/L (9-52) 02/04/17 06:10 Alkaline Phosphatase 101 U/L (38-126) 02/04/17 06:10 Creatine Kinase 117 U/L (30-135) 02/05/17 06:10 CK-MB (CK-2) 4.45 ng/mL (0.00-2.37) H 02/03/17 12:15 Troponin I < 0.012 ng/mL (0.00-0.034) 02/03/17 12:15 Total Protein 6.6 g/dL (6.3-8.2) 02/04/17 06:10 Albumin 3.7 g/dL (3.5-5.0) 02/04/17 06:10 Urine Color Yellow 02/03/17 16:30 Urine Appearance Clear 02/03/17 16:30 Urine pH 5.5 (5-7) 02/03/17 16:30 Ur Specific [place] 1.020 (0.001-1.035) 02/03/17 16:30 Urine Protein 30mg/dl (1+) (NEG - TRACE) A 02/03/17 16:30 Urine Ketones 5mg/dl (NEGATIVE) A 02/03/17 16:30 Urine Blood Negative (NEGATIVE) 02/03/17 16:30 Urine Nitrate Negative (NEGATIVE) 02/03/17 16:30 Urine Bilirubin Negative (NEGATIVE) 02/03/17 16:30 Urine Urobilinogen 0.2mg/dl (normal) (NEG-1mg/dL) 02/03/17 16:30 Ur Leukocyte Esterase Negative (NEGATIVE) 02/03/17 16:30 Urine RBC None seen (0-5/hpf) 02/03/17 16:30 Urine WBC 0-4/hpf (0-4/hpf) 02/03/17 16:30 Ur Squamous Epith Cells 0-5/hpf (<= 15/hpf) 02/03/17 16:30 Urine Bacteria <10 organisms/hpf (<10/hpf) 02/03/17 16:30 Urine Mucus None seen (Up to 25%) 02/03/17 16:30 Urine Glucose Normal (NEGATIVE) 02/03/17 16:30 Assessment and Plan - Date of Encounter Date of Encounter: 02/05/17 (1) Colles' fracture of left radius, initial encounter for closed fracture Status: Acute Assessment and plan: Orthopedic surgeon, Dr. Emmett Gruber performed successful closed reduction of bilateral Colles' fractures under local sedation yesterday with placement of casts. She is not having any pain. She is and lives alone. She has not family in town and no other resources. She is currently unable to feed, dress, bathe, or take care of herself. She will not be able to drive. I have discussed with nursing, social work, case management, physical therapy, and occupational therapy. We will continue speaking with patient about discharge planning. She will need home health care with nursing to manage her medications , physical therapy to help with her rehabilitation, occupational therapy to help with her ADLs, and home health aide to help with preparation of meals, bathing, toileting, and home chores. Anticipate discharge in 1-2 days. Current Visit: Yes (2) Colles' fracture of right radius, initial encounter for closed fracture Status: Acute Assessment and plan: As above. Current Visit: Yes (3) Hypertension Status: Chronic Assessment and plan: Long-standing HTN. Has not been seen or been on medications since 2008. BPs 200s upon admission to ED, 170-180s with lisinopril 10mg yesterday, and 130s today. We will not be overly aggressive with BP management as she has been very hypertensive for many years. Will recommend continuing lisinopril upon discharge. Current Visit: Yes (4) Elevated CK Status: Acute Assessment and plan: Mildly elevated CK 200 and decreased today 184 after gentle IVF overnight. Today CK is normal. She probably had some mild rhabdomyolysis from her bilateral Colles' fractures. She states that she was only unable to not get up from the floor for a few minutes after her fall. Troponin normal. EKG negative. She has not had any CP. IVF have been discontinued. Current Visit: Yes (5) Total bilirubin, elevated Status: Acute Assessment and plan: Repeat Tbili is the same. Dbili normal. The remainder of LFTs normal. She is not having any abdominal pain or symptoms. Check abdominal ultrasound and hepatitis profile. Current Visit: Yes (6) Leukocytosis Status: Resolved Assessment and plan: Elevated WBC on admission which is now resolved today. This was most likely related to her fall and the stress of her fractures. Current Visit: Yes - Time Spent With Patient Total time spent with greater than 50% in coordination of care (as documented) at patient's floor/unit and/or counseling patient: 25 - 35 minutes Estimated anticipated discharge: 1-2 days (1) Colles' fracture of left radius, initial encounter for closed fracture Qualifiers: Encounter type: initial encounter Qualified Code(s): S52.532A - Colles' fracture of left radius, initial encounter for closed fracture (2) Colles' fracture of right radius, initial encounter for closed fracture Qualifiers: Encounter type: initial encounter Qualified Code(s): S52.531A - Colles' fracture of right radius, initial encounter for closed fracture (3) Hypertension Qualifiers: Hypertension type: essential hypertension Qualified Code(s): I10 - Essential (primary) hypertension (6) Leukocytosis Qualifiers: Leukocytosis type: other Qualified Code(s): D72.828 - Other elevated white blood cell count
[2017-02-05] MEDS ORDERED: LISINOPRIL 10 MG TABLET PO SCH (09:00)
[2017-02-05 12:04] VITALS: BP 153/50; PULSE 72; RESP 18; TEMP 98; O2SAT 94
--- NOTE | 2017-02-05 13:24 | DC SUMMARY: IM Note ---
Discharge Summary: IM/Peds Provider: Date of Admission: 02/03/17 Admitting Provider: JULIANN SMITH MD Attending Provider: JULIANN SMITH MD Discharging Provider: JULIANN SMTIH MD Primary Care Provider: Discharge Date: 02/05/17 Consults: 02/03/17 14:18 Nutrition/Dietary Consult [CONS] Routine Reason: Minimal oral intake at home. - Diagnosis (1) Colles' fracture of left radius, initial encounter for closed fracture Status: Acute Qualifiers: Encounter type: initial encounter Qualified Code(s): S52.532A - Colles' fracture of left radius, initial encounter for closed fracture (2) Colles' fracture of right radius, initial encounter for closed fracture Status: Acute Qualifiers: Encounter type: initial encounter Qualified Code(s): S52.531A - Colles' fracture of right radius, initial encounter for closed fracture (3) Hypertension Status: Chronic Qualifiers: Hypertension type: essential hypertension Qualified Code(s): I10 - Essential (primary) hypertension (4) Elevated CK Status: Acute (5) Total bilirubin, elevated Status: Acute - Time Spent with Patient Total time spent providing and/or coordinating discharge services: Time with patient DS: Greater than 30 minutes Discharge - Patient/Caregiver Discharge Instructions Activity Level: As tolerated. Diet: Regular Follow up: JULIANN SMITH MD [Primary Care Provider] - 7 Days Overall discharge status: patient is progressing back to baseline Print Language: DIVEHI Home Medications: Lisinopril [Prinivil*] 10 mg PO DAILY #30 tab Orders: Home Health Care Location: Determined By Patient Outpt. Occupational Therapy Eval & Treat Location: Determined By Patient Disposition: HOME, SELF-CARE 1. Medical reason for no anticoagulation order on D/C?: Treatment not indicated 2. Medical reason for no anticoag overlap on D/C?: Treatment not indicated Discharge Summary Data - Medication History Medication History: Home Medications aspirin EC [Aspirin EC*] 81 mg PO DAILY 02/03/17 Inpatient Medications 02/04/17 11:58 Fentanyl [Sublimaze] 12.5 - 50 mcg IV Q5M PRN HYDROmorphone HCL [dilaUDID] 0.5 mg IV Q5M PRN 02/04/17 12:01 Acetaminophen [Tylenol] 650 mg PO Q4H PRN HYDROcodone/APAP 5/325 MG [Tyler] 1 - 2 tab PO Q4H PRN Mag-Al Plus Xs Susp [Maalox Liquid] 30 ml PO Q4H PRN Normal Saline [Sodium Chloride 0.9% 1000 ml] 1,000 ml IV CONT Ondansetron HCl [Zofran] 4 mg IV Q6H PRN Polyethylene Glycol 3350 [miraLAX] 17 gm PO BID PRN Zolpidem Tartrate [Ambien] 5 mg PO HS PRN 02/04/17 12:17 metoprolol TARTRATE [Lopressor] 1 mg IV Q5M PRN 02/04/17 13:01 hydrALAZINE HCL [Apresoline] 2 mg IV Q5M PRN 02/05/17 09:00 Lisinopril [Prinivil] 10 mg PO DAILY Procedures and tests throughout hospitalization: Completed Lab Orders 02/03/17 12:15 CKMB [CHEM] Stat TROPONIN I [CHEM] Stat 02/03/17 15:08 MAGNESIUM [CHEM] Routine 02/04/17 06:03 CREATINE KINASE [CHEM] Routine 02/04/17 06:10 HEPATIC PANEL [CHEM] Stat 02/05/17 06:10 ck [CREATINE KINASE] [CHEM] AMDRAW Pending Orders 02/03/17 14:13 Admit: Inpatient Routine Activity: Ambulate with Assist TID Activity: BRP w/ Assist Only . Assess pulse oximetry ROOM AIR (DAILY) Intake and Output QSHIFT I&O Obtain weight 0600 Sequential Compression Device IN BED OR CHAIR Telemetry monitoring CONTINUOUS TELE Titrate Oxygen TITRATE TO >90% Vital Signs ROUTINE VITALS (Q4H) Physical Therapy Eval and Treatment [PT] Routine 02/03/17 14:18 Nutrition/Dietary Consult [CONS] Routine 02/03/17 14:19 VTE Prophylaxis Scoring/ Ordering Routine 02/03/17 14:20 AMOR Hose CONTINUOUS 02/03/17 14:40 Occupation Therapy Eval and Treat [OT] Routine 02/03/17 17:57 Apply ice to affected area . 02/04/17 10:35 Anesthesia Type . 02/04/17 11:58 Juan hugger if temp <34 C PRN Warm blankets if temp<36 C PRN Fentanyl [Sublimaze] 12.5 - 50 mcg IV Q5M PRN HYDROmorphone HCL [dilaUDID] 0.5 mg IV Q5M PRN 02/04/17 12:01 Elevate affected extremity . Acetaminophen [Tylenol] 650 mg PO Q4H PRN HYDROcodone/APAP 5/325 MG [Tyler] 1 - 2 tab PO Q4H PRN Mag-Al Plus Xs Susp [Maalox Liquid] 30 ml PO Q4H PRN Normal Saline [Sodium Chloride 0.9% 1000 ml] 1,000 ml IV CONT Ondansetron HCl [Zofran] 4 mg IV Q6H PRN Polyethylene Glycol 3350 [miraLAX] 17 gm PO BID PRN Zolpidem Tartrate [Ambien] 5 mg PO HS PRN 02/04/17 12:17 metoprolol TARTRATE [Lopressor] 1 mg IV Q5M PRN 02/04/17 13:01 hydrALAZINE HCL [Apresoline] 2 mg IV Q5M PRN 02/04/17 20:00 Transfer to Floor PER PROTOCOL 02/04/17 Dinner Regular [DIET] 02/05/17 09:00 Lisinopril [Prinivil] 10 mg PO DAILY 02/05/17 09:03 US ABDOMEN, COMPLETE [id number] [US] Routine 02/05/17 10:37 Occupational Therapy Plan of Care [OT] Routine 02/05/17 11:10 HEPATITIS A TOTAL AB [SEND] Routine HEPATITIS B CORE IGM AB [SEND] Routine HEPATITIS B CORE TOTAL AB [SEND] Routine HEPATITIS B SURFACE AB [SEND] Routine HEPATITIS Be AB [SEND] Routine HEPATITIS Be AG [SEND] Routine HEPATITIS C TOTAL AB [SEND] Routine 02/05/17 11:20 HEPATITIS B SURFACE ANTIGEN [CHEM] Routine Labs on day of discharge: Labs from last 24 hours 02/05/17 02/05/17 02/05/17 11:20 11:10 06:10 Creatine Kinase 117 Hepatitis A Ab Total Pending Hep Bs Antigen Pending Hep Bs Antibody Pending Hep B Core Total Ab Pending Hep B Core IgM Ab Conf Pending Hepatitis Be Antibody Pending Hepatitis Be Antigen Pending Hepatitis C Antibody Pending IM: Discharge Physical Exam - I&O/Vital Signs I&O: Intake & Output 02/04/17 02/05/17 02/05/17 21:59 05:59 13:59 Intake Total 200 100 Output Total 1000 400 Balance -800 -300 Weight 48.5 kg 48.5 kg Intake: Oral 200 100 Output: Urine 1000 400 Other: Urine Appearance Clear Clear Clear Urine Color Yellow Yellow Yellow Stool Size Large Stool Characteristics Soft Formed Brown Voiding Method Toilet Toilet # Voids 2 Vital Signs: Last Vital Signs Temp 36.6 C 02/05/17 11:00 Pulse 72 02/05/17 11:00 Resp 18 02/05/17 11:00 BP 153/50 02/05/17 11:00 Pulse Ox 94 02/05/17 11:00 Oxygen Flow Rate 1 Oxygen Delivery Method Room Air - Constitutional General appearance: Present: cooperative, thin (Cachectic. ). Absent: acute distress - Head Head exam: Present: atraumatic, normal inspection, normocephalic - Eye Eye exam: Present: EOMI, PERRL - ENT ENT exam: Present: mucous membranes moist - Neck Neck exam: Present: full ROM - Respiratory Respiratory exam: Present: clear. Absent: accessory muscle use, rales, wheezes - Cardiovascular Cardiovascular exam: Present: RRR. Absent: clicks, gallop, systolic murmur - GI/Abdominal GI/Abdominal exam: Present: normal bowel sounds, soft. Absent: mass, organomegaly, rebound, tenderness - Extremities Exam Extremities exam: Present: normal capillary refill, edema (BUE: forearms 2' fractures. ), other (AMOR hose in place. Good DP/PT pulses.). Absent: calf tenderness, tenderness - Back Exam Back exam: Absent: CVA tenderness (L), CVA tenderness (R) - Neurological Exam Neurological exam: Present: alert, oriented X3 - Psychiatric Psychiatric exam: Present: normal affect, normal mood - Skin Skin exam: Present: other (Bruising BUE. ) - Allied Health Notes Allied health notes reviewed: nursing, OT, PT, social work
--- NOTE | 2017-02-05 14:49 | PROGRESS NOTE: Orthopedics ---
Orthopedic PN Subjective - Subjective Principal Diagnosis: Bilateral distal radius fracture Post-op Day: 1 Interval history: Pt feels fairly well. No complaints regarding casts. Ortho PN Objective Exam - Latest Vital Signs and I&O Latest Vital Signs/I&O: Vital Signs Temp 36.6 C 02/05/17 11:00 Pulse 72 02/05/17 11:00 Resp 18 02/05/17 11:00 BP 153/50 02/05/17 11:00 Pulse Ox 94 02/05/17 14:00 Intake & Output 02/04/17 02/05/17 02/05/17 17:59 05:59 17:59 Intake Total 200 100 Output Total 1000 400 Balance -800 -300 Weight 48.5 kg 48.5 kg Intake: Oral 200 100 Output: Urine 1000 400 Other: Urine Appearance Clear Clear Clear Urine Color Yellow Yellow Yellow Stool Size Large Stool Characteristics Soft Formed Brown Voiding Method Toilet Toilet Toilet # Voids 2 - Post-Operative Exam Additional Exam: She has 1+ swelling right hand/fingers but moves her fingers fairly well and no pain with passive stretch. Brisk cap refill. Less swelling on left , also NVI. Casts secure and intact. - Lab Labs: Laboratory Last Values WBC 8.9 X 10^3uL (3.9-10.7) 02/04/17 06:03 RBC 4.37 X 10^6uL (4.20-6.10) 02/04/17 06:03 Hgb 13.2 g/dL (12.0-16.0) 02/04/17 06:03 Hct 39.5 % (36.0-48.0) 02/04/17 06:03 MCV 90.3 fL (80.0-100.0) 02/04/17 06:03 MCH 30.2 pg (29.0-35.0) 02/04/17 06:03 MCHC 33.4 g/dL (32.0-36.0) 02/04/17 06:03 RDW 13.5 % (11.5-14.5) 02/04/17 06:03 Plt Count 232 X 10^3uL (130-440) 02/04/17 06:03 MPV 8.4 fL (7.4-10.4) 02/04/17 06:03 Neutrophils % 68.1 % (54.0-75.0) 02/04/17 06:03 Lymphocytes % 21.4 % (20.0-40.0) 02/04/17 06:03 Eosinophils % 1.5 % (0.0-6.0) 02/04/17 06:03 Basophils % 0.9 % (0.0-2.0) 02/04/17 06:03 Neutrophils # 6.2 X 10^3uL (2.6-6.7) 02/04/17 06:03 Lymphocytes # 1.9 X 10^3uL (0.8-3.8) 02/04/17 06:03 Monocytes 8.1 % (2.0-10.0) 02/04/17 06:03 Monocytes # 0.7 X 10^3uL (0.2-1.0) 02/04/17 06:03 Eosinophils # 0.1 X 10^3uL (0.0-0.4) 02/04/17 06:03 Basophils # 0.1 X 10^3uL (0.0-0.1) 02/04/17 06:03 PT 15.2 sec (13.0-16.6) 02/03/17 12:15 INR 1.1 02/03/17 12:15 Sodium 137 mmol/L (137-145) 02/04/17 06:03 Potassium 3.8 mmol/L (3.5-5.1) 02/04/17 06:03 Chloride 108 mmol/L (98-107) H 02/04/17 06:03 Carbon Dioxide 21 mmol/L (22-30) L 02/04/17 06:03 BUN 24 mg/dL (7-17) H 02/04/17 06:03 Creatinine 0.8 mg/dL (0.5-1.0) 02/04/17 06:03 GFR Calculation Not Reportable 02/04/17 06:03 Glucose 97 mg/dL (70-100) 02/04/17 06:03 Calcium 8.7 mg/dL (8.4-10.2) 02/04/17 06:03 Magnesium 2.3 mg/dL (1.6-2.3) 02/03/17 15:08 Total Bilirubin 1.6 mg/dL (0.2-1.3) H 02/04/17 06:10 Direct Bilirubin 0.4 mg/dL (0.0-0.4) 02/04/17 06:10 AST 25 U/L (14-36) 02/04/17 06:10 ALT 33 U/L (9-52) 02/04/17 06:10 Alkaline Phosphatase 101 U/L (38-126) 02/04/17 06:10 Creatine Kinase 117 U/L (30-135) 02/05/17 06:10 CK-MB (CK-2) 4.45 ng/mL (0.00-2.37) H 02/03/17 12:15 Troponin I < 0.012 ng/mL (0.00-0.034) 02/03/17 12:15 Total Protein 6.6 g/dL (6.3-8.2) 02/04/17 06:10 Albumin 3.7 g/dL (3.5-5.0) 02/04/17 06:10 Urine Color Yellow 02/03/17 16:30 Urine Appearance Clear 02/03/17 16:30 Urine pH 5.5 (5-7) 02/03/17 16:30 Ur Specific [place] 1.020 (0.001-1.035) 02/03/17 16:30 Urine Protein 30mg/dl (1+) (NEG - TRACE) A 02/03/17 16:30 Urine Ketones 5mg/dl (NEGATIVE) A 02/03/17 16:30 Urine Blood Negative (NEGATIVE) 02/03/17 16:30 Urine Nitrate Negative (NEGATIVE) 02/03/17 16:30 Urine Bilirubin Negative (NEGATIVE) 02/03/17 16:30 Urine Urobilinogen 0.2mg/dl (normal) (NEG-1mg/dL) 02/03/17 16:30 Ur Leukocyte Esterase Negative (NEGATIVE) 02/03/17 16:30 Urine RBC None seen (0-5/hpf) 02/03/17 16:30 Urine WBC 0-4/hpf (0-4/hpf) 02/03/17 16:30 Ur Squamous Epith Cells 0-5/hpf (<= 15/hpf) 02/03/17 16:30 Urine Bacteria <10 organisms/hpf (<10/hpf) 02/03/17 16:30 Urine Mucus None seen (Up to 25%) 02/03/17 16:30 Urine Glucose Normal (NEGATIVE) 02/03/17 16:30 Hep Bs Antigen Negative (NEGATIVE) 02/05/17 11:20 Assessment and Plan-Ortho - Date of Encounter Date of Encounter: 02/05/17 (1) Colles' fracture of left radius, initial encounter for closed fracture Assessment and plan: Doing fairly well post closed reduction. Plan: Continue casts. Will monitor, recheck x-rays in cast in about one week. Current Visit: Yes (2) Colles' fracture of right radius, initial encounter for closed fracture Status: Acute Current Visit: Yes Estimated anticipated discharge: 1-2 days (1) Colles' fracture of left radius, initial encounter for closed fracture Qualifiers: Qualified Code(s): S52.532A - Colles' fracture of left radius, initial encounter for closed fracture (2) Colles' fracture of right radius, initial encounter for closed fracture Qualifiers: Encounter type: initial encounter Qualified Code(s): S52.531A - Colles' fracture of right radius, initial encounter for closed fracture
--- NOTE | 2017-02-05 15:02 | US REPORT ---
HISTORY: Elevated bilirubin. COMPARISON: None. FINDINGS: The liver appears normal without mass or biliary dilatation. The gallbladder is normal in appearance without stones or wall thickening. There is no intra or extrahepatic bile duct dilatation. Common hep atic duct measures 3 mm in diameter. The common bile duct 5 mm in diameter. Spleen was difficult to v isualize. The kidneys are normal in appearance without mass or hydronephrosis. The right kidney measures 7.7 c m in length and the left kidney measures 8 cm in length. There is atherosclerosis of the abdominal ao rta. The aorta measured 2 cm in maximum diameter. The IVC is unremarkable. No periaortic mass or miracle opathy. No free fluid is noted. IMPRESSION: 1. Negative abdominal ultrasound. 2. Spleen was not well visualized. Results were communicated to JULIANN SMITH MD at 02/05/2017 2:57 PM. Final Electronic Signature: This report was electronically signed by Leonardo Massey MD on 02/05/2017 3:0 0 PM. [facility] /
[2017-02-06 20:15] LABS: HEPATITIS A TOTAL AB SEE COMMENTS (()); HEPATITIS B CORE IGM AB SEE COMMENTS (()); HEPATITIS B CORE TOTAL AB SEE COMMENTS (()); HEPATITIS B SURFACE AB SEE COMMENTS (()); HEPATITIS Be AB SEE COMMENTS (()); HEPATITIS Be AG Negative (Negative); HEPATITIS C TOTAL AB SEE COMMENTS (())
[2017-02-06 22:58] LABS: HEPATITIS A IGM ONLY Negative (Negative)
--- NOTE | 2017-02-07 07:19 | RADIOLOGY REPORT ---
A limited single portable view of the chest demonstrates the heart, vessels and lungs to be unremarkable. No infiltrate, fluid or pneumothorax is seen. IMPRESSION: Unremarkable limited single portable view of the chest. MTDD
--- NOTE | 2017-02-07 07:20 | RADIOLOGY REPORT ---
Three views of the right wrist demonstrate transverse fracture of the distal radial metaphysis. There is dorsal impaction resulting in reversal of the normal volar tilt. There is approximately 5 mm of dorsal displacement. I do not identify interarticular involvement on these views. Small associated ulnar styloid process fracture is noted. The carpus appears intact. IMPRESSION: Impacted and displaced right Colles fracture as described. MTDD
--- NOTE | 2017-02-07 07:22 | RADIOLOGY REPORT ---
Three views of the left wrist demonstrate a transverse fracture of the distal radial metaphysis. I do not identify interarticular involvement. There is dorsal impaction resulting in reversal of the normal volar tilt. Associated ulnar styloid process fracture is seen. The carpus appears intact. IMPRESSION: Impacted left Colles fracture as described. MTDD
--- NOTE | 2017-02-07 17:21 | RADIOLOGY REPORT ---
Two limited views of each wrist from the C-Arm in the operating room were compared with films of the previous date. There has been interval closed reduction and application of splinting material. No new abnormality is identified. IMPRESSION: Interval closed reduction and casting of bilateral Colles fractures. ANGELA
== END 2017-02-05 13:24 | disposition home or self-care (01) | DRG 563 ==
LOC: ER 11:12 → OBSVTOIN 14:18 → IN 14:18 → UNDODISOB 02-05 13:24
PROVIDERS: ADMIT Family Medicine; ATTEND Family Medicine
PROC: 0PSJXZZ Reposition Left Radius, External Approach (ICD-10-PCS; principal; 2017-02-03)
PROC: 0PSHXZZ Reposition Right Radius, External Approach (ICD-10-PCS; principal; 2017-02-03)
DX: S52.531A Colles' fracture of right radius, initial encounter for closed fracture (principal); S52.532A Colles' fracture of left radius, initial encounter for closed fracture; S61.511A Laceration without foreign body of right wrist, initial encounter; W01.0XXA Fall on same level from slipping, tripping and stumbling without subsequent striking against object, initial encounter; I10 Essential (primary) hypertension; R32 Unspecified urinary incontinence; G43.909 Migraine, unspecified, not intractable, without status migrainosus; Z79.82 Long term (current) use of aspirin
CPT/HCPCS: 12001; 29125; 36415; 71010; 73110; 76700; 80048; 80076; 81001; 82550; 82553; 83735; 84484; 85025; 85610; 86704; 86705; 86706; 86707; 86708; 86709; 86803; 87340; 87350; 90715; 93005; 93041; 96374; 99282; 99285; G0378; J0360; J1170; J2405; J7030

== ENCOUNTER 2017-02-21 14:21 | Observation (INO) | payer MEDICARE, OTHER ==
[2017-02-21] MEDS ORDERED: ceFAZolin 1 GM in NORMAL SALINE MINI-BAG+ 100 ML IV ONE ×2 (14:45→15:05)
[2017-02-21] MEDS ORDERED: MIDAZOLAM HCL 2 MG/2 ML SYR IV ONE (15:05)
[2017-02-21] MEDS ORDERED: LIDOCAINE HCL 1% 20 ML VIAL SUBCUT ONE ×2 (15:05→17:08)
[2017-02-21] MEDS ORDERED: ceFAZolin 1 GM/10 ML VIAL ONE (15:16)
[2017-02-21] MEDS ORDERED: MIDAZOLAM HCL 2 MG/2 ML VIAL ONE (15:26)
[2017-02-21] MEDS ORDERED: LACTATED RINGERS 1,000 ML IV SCH ×5 (16:00→19:43)
[2017-02-21] MEDS ORDERED: FENTANYL 100 MCG/2 ML VIAL ONE (16:27)
[2017-02-21] MEDS ORDERED: BUPIVACAINE HCL/PF 0.25% 10 ML VIAL INJ ONE (16:52)
[2017-02-21] MEDS ORDERED: FENTANYL 100 MCG/2 ML VIAL IV PRN ×2 (17:07→17:08)
--- NOTE | 2017-02-21 18:01 | PROCEDURE NOTE: Orthopedics ---
Orthopedic Procedure note - Brief Operative Note Date of procedure: 02/21/17 Pre-Op Diagnosis: Loss of reduction, bilat distal radius fractures Post-op diagnosis: same Procedure: Closed reduction, percutaneous k-wire fixation Implants: 2mm k-wire X4 Physician: MARIA M LORENZ Estimated Blood Loss: 0 Specimen/Pathology: none sent Sponge/instrument count: correct X-ray/Fluoroscopy: Yes Condition: stable Disposition: PACU
[2017-02-21] MEDS: HYDROmorphone HCL 1 MG/ML SYR IV PRN ×2 (18:07→18:30)
[2017-02-21] MEDS ORDERED: HYDROmorphone HCL 1 MG/ML SYR ONE (18:09)
[2017-02-21] MEDS ORDERED: HYDROmorphone HCL 1 MG/ML SYR IV PRN (18:13)
[2017-02-21] MEDS: HYDROcodone/APAP 5/325 MG 1 TAB TABLET PO PRN (21:03)
[2017-02-22] MEDS: HYDROcodone/APAP 5/325 MG 1 TAB TABLET PO PRN ×3 (02:46→12:11)
[2017-02-22 04:17] VITALS: RESP 20
--- NOTE | 2017-02-22 04:45 | HISTORY & PHYSICAL ---
DATE OF ADMISSION FOR OBSERVATION STAY: 02/21/17 ADMITTING DIAGNOSIS: Bilateral distal radius fractures. HISTORY OF PRESENT ILLNESS: The patient is an 87-year-old female who sustained bilateral distal radius fractures about 2 weeks ago. She underwent closed reduction and cast immobilization, but at her most recent followup she was noted to have loss of reduction on both sides with the right being more severe than the left. She was therefore admitted today and underwent repeat reduction with percutaneous K-wire fixation. PAST MEDICAL HISTORY: Her past medical history is otherwise remarkable for hypertension. MEDICATIONS Lisinopril. Enteric-coated aspirin. Celebrex. Tylenol. Stool softener. ALLERGIES: No known drug allergies. FAMILY HISTORY: Noncontributory. SOCIAL HISTORY: The patient still lives independently. She is a nonsmoker and denies alcohol use. REVIEW OF SYSTEMS: Review of systems is negative for any recent chest pain or shortness of breath. She has not had any unexplained fever or weight loss, and the review of systems is otherwise noncontributory. PHYSICAL EXAMINATION GENERAL: A frail appearing, elderly female in no apparent distress, alert and oriented times 3. HEENT: Benign. NECK: Supple. No adenopathy. CHEST: Heart regular rate and rhythm. LUNGS: Clear to auscultation. ABDOMEN: Soft, nontender, normoactive bowel sounds. EXTREMITIES: Reveals that she has mild deformity of the right wrist and no obvious deformity of the left wrist. She is neurovascularly intact on both sides. NEUROLOGIC: Otherwise nonfocal. X-RAY EVALUATION: Radiographs of the wrist again reveal shortening of the distal radius fracture on the right with significant loss of radial inclination and radial shift of the fracture. On the left side she does not have as much loss of radial inclination, but has developed recurrent apex lower angulation of about 20 degrees. ASSESSMENT: Bilateral distal radius fractures with loss of reduction following closed treatment. PLAN: The patient was brought to the operating room today and underwent percutaneous K-wire fixation and was recasted. She will be admitted overnight for observation and then discharged to home when she is stable. ANGELA
--- NOTE | 2017-02-22 04:53 | OPERATIVE REPORT ---
DATE OF SURGERY: 02/21/17 SURGEON: Emmett Gruber MD PREOPERATIVE DIAGNOSIS: Bilateral distal radius fractures with loss of reduction after closed reduction and casting. POSTOPERATIVE DIAGNOSIS: Bilateral distal radius fractures with loss of reduction after closed reduction and casting. PROCEDURE PERFORMED: Repeat closed reduction and percutaneous K-wire fixation. INDICATIONS FOR PROCEDURE: The patient is an 87-year-old female who sustained bilateral distal radius fractures about 2 weeks ago. Her fracture patterns appeared to be fairly stable and therefore she underwent closed reduction and application of fiberglass casts with a 3 point mold at that time. However, at her recent followup she was noted to have loss of reduction on both sides with the right being more severe than the left. Due to her severe shortening and loss of radial inclination especially on the right, she was taken to the operating room for repeat reduction and K-wire fixation. DESCRIPTION OF PROCEDURE: After informed consent was obtained, the patient was taken to the operating room where she was placed in the supine position under general anesthesia. After adequate anesthesia was achieved, both upper extremities were prepped and draped sterilely, and C-arm fluoroscopy was used to visualize the fracture after which a gentle closed reduction maneuver was performed. We were able to regain her baseline height on the right, and then two 2 mm K-wires were driven across the fracture site. C-arm fluoroscopy was used to verify proper alignment of the fracture and placement of the pins. Each of the pins were cut and bent, and then a sterile gauze dressing was applied. Attention was then focused on the left side at which time once again a closed reduction maneuver was performed and C-arm fluoroscopy was used to verify proper alignment. Once again two 2 mm K-wires were driven across the fracture site and C-arm fluoroscopy was used to verify proper position of the K-wires and alignment of the fracture. Once again a sterile gauze dressing was applied. Both extremities were then placed in well padded short arm fiberglass casts. The patient tolerated the procedure well and was taken to the recovery room in stable condition. ESTIMATED BLOOD LOSS: Minimal. MTDD
[2017-02-22 07:09] VITALS: BP 160/63; PULSE 63; TEMP 97.7
--- NOTE | 2017-02-22 07:49 | RADIOLOGY REPORT ---
Two limited views of each wrist from the C-Arm in the operating room are compared with prior films dated 02/19/2017. There has been interval removal of casting material, reduction and pinning of both distal radius fractures. No other change is identified. IMPRESSION: Interval reduction and pinning of both distal radius fractures. [facility]
[2017-02-22] MEDS ORDERED: LISINOPRIL 10 MG TABLET PO SCH (09:00)
[2017-02-22] MEDS ORDERED: CELECOXIB 100 MG CAPSULE PO SCH (09:00)
--- NOTE | 2017-02-22 10:19 | PROGRESS NOTE: Orthopedics ---
Orthopedic PN Subjective - Subjective Principal Diagnosis: Post op percutaneous K-wire fixation bilateral distal radius fractures Post-op Day: 1 Interval history: The patient feels well today, with no new complaints. Ortho PN Objective Exam - Latest Vital Signs and I&O Latest Vital Signs/I&O: Vital Signs Temp 36.5 C 02/22/17 07:00 Pulse 63 02/22/17 07:00 Resp 20 02/22/17 07:00 BP 160/63 02/22/17 07:00 Pulse Ox 93 02/22/17 07:00 Intake & Output 02/21/17 02/22/17 02/22/17 17:59 05:59 17:59 Intake Total 725 Output Total 1007 Balance -282 Weight 48.081 kg 48.081 kg Intake: IV 505 Right Antecubital 505 Oral 220 Output: Urine 1007 Other: Urine Appearance Clear Urine Color Yellow Voiding Method Toilet # Voids 4 - Post-Operative Exam Dressing Status: dry & intact, other (her casts are secure and intact, and she has minimal if any swelling in her fingers.) Active Motor: intact Sensation: intact Assessment and Plan-Ortho - Date of Encounter Date of Encounter: 02/22/17 (1) Colles' fracture of left radius, initial encounter for closed fracture (2) Colles' fracture of right radius, initial encounter for closed fracture Assessment and plan: Assessment: The patient is doing well post op closed reduction and percutaneous K-wire fixation of bilateral distal radius fractures. Plan: 1. Discharge to home. 2. Keep casts clean and dry. 3. Move fingers as much as possible. 4. Follow-up at the orthopedic clinic in 2 weeks for reevaluation and x-rays in the cast. Current Visit: No Quality Questions - VTE Prophylaxis Assessment VTE Present on Admission?: No Patient at risk for venous thromboembolism?: No VTE Risk Level: Very Low Risk Pharmaceutical VTE prophylaxis contraindication reason: not indicated Mechanical VTE prophylaxis contraindication reason: not indicated (1) Colles' fracture of left radius, initial encounter for closed fracture Qualifiers: (2) Colles' fracture of right radius, initial encounter for closed fracture Qualifiers:
[2017-02-22 11:24] VITALS: O2SAT 92
== END 2017-02-22 10:26 | disposition home or self-care (01) ==
LOC: SDS 14:21 → UNDOADMOB 19:40 → IN 19:40
PROVIDERS: ADMIT Orthopaedic Surgery; ATTEND Orthopaedic Surgery
DX: S52.531P Colles' fracture of right radius, subsequent encounter for closed fracture with malunion (principal); S52.532P Colles' fracture of left radius, subsequent encounter for closed fracture with malunion; I10 Essential (primary) hypertension; R32 Unspecified urinary incontinence; Z79.899 Other long term (current) drug therapy
CPT/HCPCS: 25606; 73100; 76000; G0378; G8984; G8985; J0690; J1170; J2250; J2550; J7120

== ENCOUNTER 2017-03-26 17:05 | Emergency (ER) | payer MEDICARE, OTHER ==
[2017-03-26] MEDS ORDERED: LIDOCAINE HCL 2% URO-JET 5 ML JEL.PF.APP MUCOUS MEM ONE (17:42)
[2017-03-26] MEDS ORDERED: BISACODYL 10 MG SUPP.RECT RECTAL ONE (18:15)
[2017-03-26] MEDS ORDERED: MAGNESIUM CITRATE SOLN 296 ML BTL ONE (18:41)
[2017-03-26] MEDS ORDERED: LACTULOSE 20 GM/30 ML UDC ONE (19:07)
--- NOTE | 2017-03-26 19:21 | ER NURSING DOCUMENTATION ---
Nurse's Notes [facility] Name:Esme Vogel Age:87 yrs Sex:Female :1930 Arrival Date:03/26/2017 Time:17:05 Bed1 Private MD:Kaya Lopez Diagnosis:Fecal Impaction Presentation: 03/26 17:15 Acuity: HUGH 3 tg 17:18 Presenting complaint: Patient states: Abdominal pain from constipation. Transition of lp care: Home. Notified ED Physician of Francisco Patel notified. 17:18 Method Of Arrival: Private Vehicle lp Triage Assessment: 17:26 General: Appears in no apparent distress, Behavior is appropriate for age. Pain: lp Complains of pain in right upper quadrant, left upper quadrant, right lower quadrant and left lower quadrant Pain currently is 4 out of 10 on a pain scale. Pain began 2-3 days ago Is Aggravated by trying to have a BM. EENT: No deficits noted. Neuro: No deficits noted. Cardiovascular: No deficits noted. GI: Bowel sounds hypoactive in right upper quadrant, left upper quadrant, right lower quadrant and left lower quadrant. Derm: No deficits noted. Musculoskeletal: No deficits noted. Historical: - Allergies: No known drug Allergies; - Home Meds: 1. Zofran 4 mg oral tab 1 tablet 2. tramadol 50 mg oral tab 1 tab every 4 hours as needed 3. Celebrex 200 mg oral cap 1 cap 2 times per day as needed 4. lisinopril 10 mg oral tab 1 tab once daily 5. aspirin 81 mg oral chew 1 tab once daily 6. acetaminophen 500 mg oral tab 1 tab every 3 hours as needed 7. Stool Softener 50 mg oral cap 1 cap once daily - PMHx: hypoxemia; MIGRAINES; HYPERTENSION; bilateral wrist fractures; rhabdomyolysis; chest pain; urinary incontinence; syncope; - PSHx: left wrist fracture repair; Right wrist fracture repair; - Tetanus: unknown will f/u with PCP. - Ebola Screening: : Patient negative for fever greater than or equal to 101.5 degrees Fahrenheit, and additional compatible Ebola Virus Disease symptoms. Patient denies exposure to infectious person. Patient denies travel to an Ebola-affected area in the 21 days before illness onset. . - Immunization history: Pneumococcal vaccine is up to date, Flu Vaccine < 1 year. - Social history: Smoking status: Patient states was never smoker of tobacco. Screenin:28 Infectious Disease Risk None. Abuse screen: Denies threats or abuse. Denies injuries lp from another. Nutritional screening: No deficits noted. Assessment: 17:28 See Triage Assessment done by same RN. lp Vital Signs: 17:27 BP 169 / 94; Pulse 80; Resp 16; Temp 97.5(O); Pulse Ox 97% on R/A; Weight 47.17 kg; lp Height 5 ft. 1 in. (154.94 cm); Pain 4/10; 17:27 Body Mass Index 19.65 (47.17 kg, 154.94 cm) lp ED Course: 17:13 Patient arrived in ED. ds 17:13 Kaya Lopez MD is Private Physician. ds 17:15 Triage completed. tg 17:18 Rosa M Khoury, NADIRA is Primary Nurse. lp 17:[address] Singh notified. lp 17:23 Efe Singh MD is Attending Physician. jm 17:28 Valuables Remains with patient Patient has correct armband on for positive lp identification. Placed in gown. Bed in low position. Call light in reach. 18:06 Soap suds enema given. Patient tolerated well. lp 18:45 Kaya Lopez MD is Referral Physician. Administered Medications: 17:37 Drug: Urojet - Lidocaine Viscous Gel 2 % 1 application; {Note: Rectal.} Route: Mucous lp Membrane; 18:05 Follow up: Response: No adverse reaction lp 18:07 Drug: Bisacodyl Suppository 10 mg; Route: WI; lp 18:49 Follow up: Response: No adverse reaction; No change in condition lp 18:20 Drug: Magnesium Citrate Liquid 300 ml; Route: PO; lp 18:53 Follow up: Response: No change in condition lp 18:59 Drug: Lactulose 20 grams; Route: PO; lp 19:05 Follow up: Response: No adverse reaction; No change in condition lp Outcome: 18:45 Discharge ordered by . 19:06 Discharged to home ambulatory. lp 19:06 Condition: improved 19:06 Instructed on discharge instructions, follow up and referral plans. medication usage. 19:20 Patient left the ED. lp 03/27 15:56 Discharge F/U Call: Spoke with: patient. Overall Care on a scale of 1-10 with 10 lc being the best care, you rate our care as: Other comments: CAME BACK BY AMBULANCE AFTER ADULT PROTECTIVE SERVICES INVOLVED. [place] [facility] [place]. Signatures: Montez Teixeira RN RN tg Coleman, Linda, RN RN lc Pavlish, Lena, RN RN lp Elizabet, Kirsty, Reg Reg Efe Roman MD MD jm
--- NOTE | 2017-03-26 19:21 | ER PHYSICIAN DOCUMENTATION ---
Physician Documentation [facility] Name:Esme Vogel Age:87 yrs Sex:Female :1930 Arrival Date:03/26/2017 Time:17:05 Bed1 Private MD:Kaya Lopez ED PhysicianMesmithEfe Disposition: 03/26/17 18:45 Discharged to Home/Self Care. Impression: Fecal Impaction. - Condition is Good. - Discharge Instructions: FECAL IMPACTION, Treated. - Medical Reconciliation form form. - Follow up: Kaya Lopez MD; When: 1 - 2 days; Reason: Continuance of care. - Problem is new. - Symptoms have improved. HPI: 03/26 18:57 This 87 yrs old Female presents to ER via Private Vehicle with complaints of jm Urinary Problem. 18:57 The patient presents with constipation, the patient has not had a bowel movement for jm 5days. Onset: The symptoms/episode began/occurred today. Associated signs and symptoms: Pertinent negatives: fever, vomiting, vomiting blood. The symptoms are described as dull. Severity of pain: At its worst the pain was moderate. Historical: - Allergies: No known drug Allergies; - Home Meds: 1. Zofran 4 mg oral tab 1 tablet 2. tramadol 50 mg oral tab 1 tab every 4 hours as needed 3. Celebrex 200 mg oral cap 1 cap 2 times per day as needed 4. lisinopril 10 mg oral tab 1 tab once daily 5. aspirin 81 mg oral chew 1 tab once daily 6. acetaminophen 500 mg oral tab 1 tab every 3 hours as needed 7. Stool Softener 50 mg oral cap 1 cap once daily - PMHx: hypoxemia; MIGRAINES; HYPERTENSION; bilateral wrist fractures; rhabdomyolysis; chest pain; urinary incontinence; syncope; - PSHx: left wrist fracture repair; Right wrist fracture repair; - Tetanus: unknown will f/u with PCP. - Ebola Screening: : Patient negative for fever greater than or equal to 101.5 degrees Fahrenheit, and additional compatible Ebola Virus Disease symptoms. Patient denies exposure to infectious person. Patient denies travel to an Ebola-affected area in the 21 days before illness onset. . - Immunization history: Pneumococcal vaccine is up to date, Flu Vaccine < 1 year. - Social history: Smoking status: Patient states was never smoker of tobacco. ROS: 18:58 Constitutional: Negative for fever. jm 18:58 Abdomen/GI: Positive for nausea, constipation. 18:58 Psych: Negative for anxiety, drug dependence, alcohol dependence. Exam: 18:58 Constitutional: The patient appears alert, awake. jm 18:58 Abdomen/GI: Bowel sounds: normal, Palpation: abdomen is soft and non-tender, Rectal exam: fecal impaction, that is severe, the exam is chaperoned by the nurse. 18:58 Skin: Appearance: Color: pink, no rash present. Vital Signs: 17:27 BP 169 / 94; Pulse 80; Resp 16; Temp 97.5(O); Pulse Ox 97% on R/A; Weight 47.17 kg; lp Height 5 ft. 1 in. (154.94 cm); Pain 4/10; 17:27 Body Mass Index 19.65 (47.17 kg, 154.94 cm) lp Procedures: 19:01 Fecal disimpaction: digital disimpaction was performed, with a large amount of stool jm expressed. The patient tolerated the intervention well. MDM: 17:23 Patient medically screened. jm 18:59 Differential diagnosis: non-specific abd pain, impaction/constiation. Data reviewed: vital signs, nurses notes, and as a result, I will discharge patient. Counseling: I had a detailed discussion with the patient and/or guardian regarding: the historical points, exam findings, and any diagnostic results supporting the discharge/admit diagnosis, the need for outpatient follow up, with the patient's primary care provider. 03/26 17:24 Order name: Enema: Soap Suds; Complete Time: 18:05 Dispensed Medications: 17:37 Drug: Urojet - Lidocaine Viscous Gel 2 % 1 application; {Note: Rectal.} Route: Mucous lp Membrane; 18:05 Follow up: Response: No adverse reaction lp 18:07 Drug: Bisacodyl Suppository 10 mg; Route: AK; lp 18:49 Follow up: Response: No adverse reaction; No change in condition lp 18:20 Drug: Magnesium Citrate Liquid 300 ml; Route: PO; lp 18:53 Follow up: Response: No change in condition lp 18:59 Drug: Lactulose 20 grams; Route: PO; lp 19:05 Follow up: Response: No adverse reaction; No change in condition lp Signatures: Rosa M Khoury, RN RN lp Efe Singh MD MD jm
== END 2017-03-26 19:21 | disposition home or self-care (01) ==
LOC: ER 17:05
DX: K56.41 Fecal impaction (principal); K59.00 Constipation, unspecified; R11.0 Nausea; I10 Essential (primary) hypertension; Z79.899 Other long term (current) drug therapy; Z79.82 Long term (current) use of aspirin
CPT/HCPCS: 46608; 99282; 99284

== ENCOUNTER 2017-03-27 11:56 | Observation (INO) | payer MEDICARE, OTHER ==
[2017-03-27] MEDS ORDERED: HOME MEDICATION LIST NEEDED 1 EA EACH MC ONE (12:37)
[2017-03-27 12:41] LABS: BASOPHILS 0.1 % (0.0-2.0); EOSINOPHILS# 0.1 X 10^3uL (0.0-0.4); HEMATOCRIT 44.3 % (36.0-48.0); LYMPHOCYTES 13.9 % (20.0-40.0); LYMPHOCYTES# 1.5 X 10^3uL (0.8-3.8); MEAN CELL VOLUME 93.3 fL (80.0-100.0); MEAN CORPUS. HGB CONCENTRATION 33.9 g/dL (32.0-36.0); MEAN CORPUSCULAR HEMOGLOBIN 31.6 pg (29.0-35.0); MEAN PLATELET VOLUME 8.5 fL (7.4-10.4); MONOCYTES 7.6 % (2.0-10.0); MONOCYTES# 0.8 X 10^3uL (0.2-1.0); NEUTROPHILS 77.4 % (54.0-75.0); NEUTROPHILS# 8.7 X 10^3uL (2.6-6.7); PLATELET COUNT 326 X 10^3uL (130-440); RED BLOOD COUNT 4.74 X 10^6uL (4.20-6.10); RED CELL DISTRIBUTION WIDTH 13.9 % (11.5-14.5); WHITE BLOOD COUNT 11.1 X 10^3uL (3.9-10.7)
[2017-03-27 12:45] LABS: A/G RATIO 1.3; ALBUMIN 4.8 g/dL (3.5-5.0); ALKALINE PHOSPHATASE 130 U/L (38-126); ALT 21 U/L (9-52); AST 28 U/L (14-36); BILIRUBIN, TOTAL 1.2 mg/dL (0.2-1.3); BLOOD UREA NITROGEN 20 mg/dL (7-17); CALCIUM 9.8 mg/dL (8.4-10.2); CHLORIDE 94 mmol/L (98-107); CREATININE 1.7 mg/dL (0.5-1.0); GLUCOSE 120 mg/dL (70-100); MAGNESIUM 3.4 mg/dL (1.6-2.3); POTASSIUM 4.5 mmol/L (3.5-5.1); SODIUM 130 mmol/L (137-145); TOTAL PROTEIN 8.5 g/dL (6.3-8.2)
--- NOTE | 2017-03-27 13:15 | ER NURSING DOCUMENTATION ---
Nurse's Notes [facility] Name:Esme Vogel Age:87 yrs Sex:Female :1930 Arrival Date:03/27/2017 Time:11:56 BedTrauma-B Private MD:Kaya Lopez Diagnosis:Adult Failure to Thrive Presentation: 03/27 12:04 Presenting complaint: EMS states: [facility] was called due to lack of care. Transition of lp care: Home. 12:04 Acuity: HUGH 3 lp 12:04 Method Of Arrival: EMS: 420 lp Triage Assessment: 12:06 General: Appears in no apparent distress, unkempt, Behavior is appropriate for age. lp Pain: Denies pain. Neuro: Level of Consciousness is awake, confused, Oriented to person, place, Clinical Support Manager are equal bilaterally Moves all extremities. Gait is steady, Speech is normal, Facial symmetry appears normal. Cardiovascular: No deficits noted. Respiratory: No deficits noted. GI: No deficits noted. : No deficits noted. Derm: No deficits noted. Historical: - Allergies: No known drug Allergies; - Home Meds: 1. Zofran 4 mg oral tab 1 tablet 2. tramadol 50 mg oral tab 1 tab every 4 hours as needed 3. Celebrex 200 mg oral cap 1 cap 2 times per day as needed 4. lisinopril 10 mg oral tab 1 tab once daily 5. aspirin 81 mg oral chew 1 tab once daily 6. acetaminophen 500 mg oral tab 1 tab every 3 hours as needed 7. Stool Softener 50 mg oral cap 1 cap once daily - PMHx: MIGRAINES; HYPERTENSION; Fecal Impaction (March 26, 2017); - PSHx: left wrist fracture repair; Right wrist fracture repair; - Tetanus: < 10 years. - Ebola Screening: : Patient negative for fever greater than or equal to 101.5 degrees Fahrenheit, and additional compatible Ebola Virus Disease symptoms. Patient denies exposure to infectious person. Patient denies travel to an Ebola-affected area in the 21 days before illness onset. . - Immunization history: Pneumococcal vaccine is up to date, Flu Vaccine < 1 year. - Social history: Smoking status: Patient states was never smoker of tobacco. Screenin:09 Infectious Disease Risk None. Abuse screen: Denies threats or abuse. Denies injuries lp from another. Nutritional screening: No deficits noted. Assessment: 12:09 See Triage Assessment done by same RN. lp Vital Signs: 12:07 BP 132 / 58; Pulse 75; Resp 14; Pulse Ox 99% ; lp 12:08 Weight 47.7 kg; Height 5 ft. 1 in. (154.94 cm); lp 13:01 BP 155 / 53 (auto/); lp 13:02 Pulse Ox 95% ; lp 12:08 Body Mass Index 19.87 (47.70 kg, 154.94 cm) lp ED Course: 11:57 Patient arrived in ED. ds 11:57 Kaya Lopez MD is Private Physician. ds 11:58 Efe Singh MD is Attending Physician. jm 12:05 Triage completed. lp 12:[address] Singh notified. lp 12:09 Valuables Remains with patient Patient has correct armband on for positive lp identification. Placed in gown. Bed in low position. Call light in reach. Side rails up X 1. Warm blanket given. 12:23 Hetal Martínez, RN is Primary Nurse. lc 12:23 Maintain field IV. Dressing intact. Good blood return noted. Site clean & dry. Gauge & lc site: 20G R AC. 12:25 Pulse Ox - RN Monitoring Only NIBP On - RN Monitoring Only. lc 12:25 Labs drawn. (by ED staff). Sent per order to lab. lc 12:33 Kaya Lopez MD is Admitting Physician. Administered Medications: 12:23 Drug: NS 0.9% 1000 ml; Route: IV; Rate: bolus; Infused Over: 1 hrs; Site: right lc antecubital; 13:13 Follow up: Response: No adverse reaction; No change in condition; IV Status: Completed lp infusion; IV Intake: 1000ml Intake: 13:13 IV: 1000ml; Total: 1000ml. lp Outcome: 12:34 Decision to Admit by Provider. josé miguel 13:13 Admitted to Med/surg accompanied by nurse. lp 13:13 Condition: stable 13:13 Report given to Suze WADDELL 13:13 Instructed on need to admit 13:14 Patient left the ED. lp Signatures: Hetal Martínez, Rosa M Walton RN, RN RN lp Srot, Kirsty, Reg Reg ds Efe Singh MD MD jm
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
[2017-03-27 14:04] VITALS: O2SAT 95
[2017-03-27 15:15] VITALS: BP 178/78; PULSE 73; RESP 16; TEMP 98.4
--- NOTE | 2017-03-27 19:56 | HISTORY & PHYSICAL ---
DATE OF ADMISSION: 03/27/17 ATTENDING PHYSICIAN: Kaya Lopez MD CHIEF COMPLAINT: Needs placement. HISTORY OF PRESENT ILLNESS: This is an 87-year-old white female who presents for placement in the [facility]. It was advised that she come to the Emergency Room. There have been concerns with Adult Protective Agency that she is unable and unsafe to take care of herself at home. She apparently has fired her caregiver. I do not know the details. She is a difficulty historian given the language barrier. She states that she is not having pain from her bilateral forearm fractures which are currently casted. She was seen in the Emergency Room for constipation last night and discharged back home after successful fecal disimpaction. She reports some fecal incontinence today as she was taking laxatives. She denies any recent falls. No recent fevers, chills or sweats. No chest pain. No shortness of breath. No palpitations. No headaches. No abdominal pain. She states that she has had several episodes of nausea and vomiting. She still has a fair appetite. No dysuria. Her neighbors were concerned. They called 911 and Adult Protective Services. The patient herself has made some accusations against her caregiver. REVIEW OF SYSTEMS: As in History of Present Illness. PAST MEDICAL HISTORY 1. Fractures of bilateral distal radius, status post open reduction, internal fixation. She is currently in casts and followed by Orthopedic Surgeon Dr. Emmett Gruber. 2. History of migraines. 3. History of essential hypertension. 4. History of hypoxemia. 5. History of urinary incontinence. PAST SURGICAL HISTORY: As above. Status post closed reduction percutaneous pinning of bilateral distal radius. MEDICATIONS Zofran 4 mg as needed for nausea and vomiting. Tramadol 50 mg every 4 hours as needed for pain. Celebrex 200 mg 1 capsule twice daily as needed for pain. Lisinopril 10 mg daily. Baby aspirin 81 mg daily. Tylenol 500 mg every 2 hours as needed for pain. Stool softener 50 mg daily. ALLERGIES: No known drug allergies. SOCIAL HISTORY: She lives alone. She is . She is originally for [facility]. Nonsmoker. No alcohol use. She has a DNR order in place. Her Medial Power of Food Sanitarian is Giovana Teixeira. Previously Giovana Teixeira was with the patient from 8: 00 a.m. to 2:00 p.m. daily. No children. 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 FAMILY HISTORY: Her mother at the age of 87 of old age. Her dad in his 30s in World War [place]. Her grandmother had chronic ischemic heart disease and her grandfather at the age of 70. DATA: CBC white count 11.1, 77.4% neutrophils. Comprehensive metabolic panel shows sodium 130, chloride 94, bicarb 20, non-fasting glucose 120, BUN 20, creatinine 1.7, alkaline phosphatase 130. Total protein 8.5, magnesium 3.4. PHYSICAL EXAMINATION VITAL SIGNS: Upon admission to the emergency room, temperature not recorded, blood pressure 132/58, pulse 75, respiratory rate 14, pulse oxygen 99% on room air. Weight is 47.7 kg. GENERAL: This is a pleasant elderly female who is in no apparent distress. Dishevelled. Mildly confused. HEENT: Her sclerae are clear. Her pupils are equal, round and reactive to light. Extraocular movements are intact. Her TMs are clear. Her nares are clear. Her oropharynx is clear. LUNGS: Good aeration throughout and clear. HEART: Regular rate and rhythm without any murmurs, rubs or gallops. ABDOMEN: Soft, nontender, nondistended with good bowel sounds and no masses or hepatosplenomegaly. EXTREMITIES: Warm. Bilateral upper extremities are immobilized in short arm casts. She has no clubbing, cyanosis or edema. She is able to wiggles her fingers without difficulty. She has a good hand space scheduler. Bilateral lower extremities with no swelling and nontender. Negative Homans. Good peripheral pulses. NEUROLOGIC: Alert. She asks what todays date is as she knows that she is having her cast removed on March 29. She is only a fair historian as above. Cranial nerves 2-12 are grossly intact without focal deficits. Her motor, sensation and DTRs are intact. ASSESSMENT: This is a 87-year-old female who is otherwise remarkably healthy who is unable to take care of herself at home. PLAN 1. Fluids, electrolytes and nutrition. Hyponatremia, hypochloridemia. IV fluids. Recheck labs tomorrow. Regular diet. 2. Cardiovascular. Patient with history of hypertension. Blood pressure stable. Continue Lisinopril. Continue baby aspirin. 3. Respiratory. Patient with clear lungs, stable on room air. No underlying respiratory issues. 4. Renal. Patient with acute renal insufficiency, most likely secondary to dehydration. IV fluids. Recheck labs tomorrow. 5. Neurology: she does not have an underlying diagnosis of dementia. However, she is not able to take care of herself at home. She will need formal neuropsychiatric testing to determine whether or not she is competent and if she is able to make her own medical decisions. 5. Psychosocial. I have placed a call to Evangelista De La O, Masters of Social Work with Adult Protective Services to discuss patients case. She will most likely need [facility] at [facility] as she is unable to take care of herself at home. DNR status. Addendum. Several hours after admission, Esme has gotten fully dressed and states that she is not sick and she is going to walk home. She does not want to pay for the hospitalization and does not want to pay for the fdc. The nursing staff, social work staff, Hospital staff, and myself gently try to convince Esme to stay here in the as she is not safe to go home. However, she is not willing to stay in t We do convince her that we do not want her to walk home. A cab is paid for and arranged bring her home. On the following day, Evangelista De La O VITREO RETINAL SURGEON calls me with concerns of Esme being discharged home. We have had a long discussion. Esme was mentally competent here in the hospital. She was not a threat to herself or others. Therefore, she was not an appropriate candidate for a 72 hour mental health hold. However, I do not believe that Esme is capable of managing her finances. Evangelista will contact Shantel Teixeira see if she is officially [facility] 's medical power of prosecuting attorney and if she is willing to become [facility]'s financial conservator. Otherwise, the state will need to appoint a financial conservator and medical power of prosecuting attorney for Esme. We have notified the [facility] that if Esme comes back to the ED, she will need to be transferred to a larger facility for a neuropsychiatric evaluation as this cannot be done here at our facility. CC: Emmett Gruber MD; Magdy Garsia MD; Anila Estrada RN; Marija Abreu RN. ANGELA
== END 2017-03-27 15:48 | disposition left against medical advice (07) ==
LOC: ER 11:56 → IN 12:57
PROVIDERS: ADMIT Family Medicine; ATTEND Family Medicine
DX: R62.7 Adult failure to thrive (principal); R41.82 Altered mental status, unspecified; E86.0 Dehydration; R15.9 Full incontinence of feces; R32 Unspecified urinary incontinence; S52.501D Unspecified fracture of the lower end of right radius, subsequent encounter for closed fracture with routine healing; S52.502D Unspecified fracture of the lower end of left radius, subsequent encounter for closed fracture with routine healing; Z79.899 Other long term (current) drug therapy; Z74.3 Need for continuous supervision
CPT/HCPCS: 80053; 83735; 85025; 96360; 99284; 99285; A0425; A0429; G0378